=== PATIENT | female | born 1960 | race Caucasian/White ===

== ENCOUNTER 2016-12-19 08:42 | Outpatient (CLI) | payer OTHER ==
[~2016-12-19] VITALS: Ht 160 cm; Wt 81.2 kg
[2016-12-19] VITALS (17 sets, daily range): BP systolic 86–106; BP diastolic 50–66; PULSE 65–97; RESP 18–55; TEMP 98.1; O2SAT 97–100; Ht 160 cm; Wt 81.2 kg
[~2016-12-19 08:42] MED LIST: ALBU8.5H INH; CEFP200T14 PO; FURO-154 PO; HYDR-3841 PO; LACT10SO PO; LEVO50TA11 PO
--- NOTE | 2016-12-19 08:45 | NUR ---
ARRIVAL AMBULATORY TO ROOM 118 WITH SPOUSE. PATIENT ALERT AND ORIENTED X3. O2 RA. PATIENT DOES REPORT SHORTNESS OF BREATH BUT REPORTS THAT IS NORMAL FOR HER. DENIES CHEST PAIN. SPOUSE AT BEDSIDE. BARBARA HAMILTON NOTIFIED OF PATIENTS ARRIVAL. BED IN LOWEST POSITION, CALL LIGHT WITHIN REACH, SIDE RAILS UP X2.
[2016-12-19] MEDS ORDERED: ALBUMIN HUMAN 25% 200 ML IV ONE (09:47)
[2016-12-19] MEDS ORDERED: NORMAL SALINE 100 ML ONE (09:47)
--- NOTE | 2016-12-19 10:15 | NUR ---
OFF UNIT PATIENT OFF UNIT AT THIS TIME. PATIENT LEFT VIA WHEELCHAIR AND US STAFF. PATIENT VITALS ARE STABLE AND PATIENT IS ON ROOM AIR.
[2016-12-19] MEDS ORDERED: ALBUMIN HUMAN 25% 12.5gm 50ml IV ONE (11:00)
--- NOTE | 2016-12-19 11:01 | NUR ---
CM CM ATTEMPTED VISIT. PT IS AT PROCEDURE. NO FAMILY PRESENT IN THE ROOM. CM CONTACT INFORMATION IS LEFT AT THE BEDSIDE.
--- NOTE | 2016-12-19 11:56 | NUR ---
RETURN RETURN FROM PROCEDURE TO ROOM 118 VIA WHEELCHAIR. TRANSFERRED SELF FROM WHEELCHAIR TO BED. O2 RA. DENIES CHEST PAIN OR SHORTNESS OF AIR AT THIS TIME. BED IN LOWEST POSITION, SIDE RAILS UP X2, CALL LIGHT WITHIN REACH.
[2016-12-19] MEDS ORDERED: ALBUMIN HUMAN 25% 50 ML IV ONE (12:45)
--- NOTE | 2016-12-19 12:57 | DI ---
Indication:ITS.REASON Procedure:US GUIDE PARACENTESIS, SUBSEQ PARACENTESIS: The procedure including the benefits, risks, and alternatives were explained in detail to the patient. All of her questions were answered. She stated that they understood and wished to proceed. Informed consent was obtained. A preprocedural timeout was performed to confirm the correct patient and procedure. Using sterile technique, local xylocaine anesthesia, and sonographic guidance throughout, a paracentesis is done from a right lateral approach. 7000 ml of straw colored fluid was taken off without complication. Following this, the patient was taken back to her recovery room to finish her albumin infusion. Impression: Successful paracentesis performed with 7 L of fluid removed. Abdias Duncan RPA/CATARINA performed this under my personal supervision. .
[2016-12-19] MEDS ORDERED: NORMAL SALINE 500 ML IV ONE (14:45)
[2016-12-19] MEDS ORDERED: ONDANSETRON 4mg/2ml INJECTION IV PRN (14:45)
--- NOTE | 2016-12-19 16:10 | NUR ---
DISCHARGE PATIENT IS ALERT AND ORIENTED X3. PATIENT VITALS ARE STABLE AND PATIENT IS ON ROOM AIR. PATIENT DENIES CP, NAUSEA, AND SOA. PATIENT DISCHARGE INSTRUCTIONS INCLUDE: DI FOR PARACENTESIS, ACTIVITY, BATHING, CONTINUED MEDICATION, SIGNS AND SYMPTOMS OF INFECTION. PATIENT DRESSING HAD DRAINAGE CIRCLED. PATIENT STATED " MY PLATELET COUNT IS 30K THIS WEEK." PERSONAL BELONGINGS RETURNED, AND ID BAND REMOVED. IV DISCONTINUED. PATIENT AMBULATED WITH THIS NURSE TO FRONT ENTRANCE. PATIENT TRANSPORTED HOME FOR SELF CARE.
== END 2016-12-19 16:10 | disposition home or self-care (01) ==
LOC: IMA.BED 08:42 → SRG 08:42 → IMA.BED 16:10
PROVIDERS: ATTEND Radiology Diagnostic Radiology
DX: K74.60 Unspecified cirrhosis of liver (principal)
CPT/HCPCS: 49083; J2405; J7050; P9047

== ENCOUNTER 2016-12-26 08:34 | Outpatient (CLI) | payer OTHER ==
[2016-12-26] VITALS (16 sets, daily range): BP systolic 97–117; BP diastolic 56–69; PULSE 65–83; RESP 14–22; TEMP 97–97.4; O2SAT 97–100; Ht 160 cm; Wt 76.6 kg
[~2016-12-26] VITALS: Ht 160 cm; Wt 76.6 kg
[~2016-12-26 08:34] MED LIST changes: -CEFP200T14 PO
--- NOTE | 2016-12-26 08:43 | NUR ---
ADMIT PATIENT IS ADMITTED TO ROOM 133 AT THIS TIME. PATIENT AMBULATED TO ROOM WITH NO ASSISTANCE. PATIENT IS ALERT AND ORIENTED X3. WILL CONTINUE TO MONITOR.
[2016-12-26] MEDS ORDERED: ALBUMIN HUMAN 25% 200 ML IV ONE (10:13)
[2016-12-26] MEDS ORDERED: NORMAL SALINE 100 ML ONE (10:15)
--- NOTE | 2016-12-26 10:28 | NUR ---
To Radiology Pt transported to radiology at this time via wheelchair. VS stable on RA.
[2016-12-26] MEDS ORDERED: ALBUMIN HUMAN 25% 12.5gm 50ml IV ONE ×4 (11:00→15:01)
--- NOTE | 2016-12-26 12:03 | NUR ---
Back to room Pt transferred back to room at this time via wheelchair. VS stable on RA. Family present at time of transfer. Side rails up X2, call light w/in reach, bed alarm on.
[2016-12-26] MEDS: ALBUMIN HUMAN 25% 50 ML IV SCH ×3 (12:35→13:36)
--- NOTE | 2016-12-26 13:38 | DI ---
Indication:ITS.REASON Procedure:US GUIDE PARACENTESIS, SUBSEQ PARACENTESIS: The procedure including the benefits, risks, and alternatives were explained in detail to the patient. All of her questions were answered. She stated that they understood and wished to proceed. Informed consent was obtained. A preprocedural timeout was performed to confirm the correct patient and procedure. Using sterile technique, local xylocaine anesthesia, and sonographic guidance throughout, a paracentesis is done from a right lateral approach. 9000 ml of straw colored fluid was taken off without complication. Following this, the patient was taken to recovery room to finish her albumin infusion. Impression: Successful paracentesis performed with 9 L of fluid removed. Abdias Duncan RPA/CATARINA performed this under my personal supervision. .
--- NOTE | 2016-12-26 15:25 | NUR ---
Discharge Pt discharged home at this time. Pt ambulated self to front entrance, accompanied by nursing staff, to friend's vehicle. Discharge instructions reviewed and hard copies given. Pt verbalized understanding of Activity guidelines, diet, s/sx to report, medications and follow up appointment. Pt states "feeling the best she's felt in a long time." Denies SOA/difficulty breathing, CP, N/V.
== END 2016-12-26 15:25 | disposition home or self-care (01) ==
LOC: IMA.BED 08:34 → SRG 08:34 → IMA.BED 15:25
PROVIDERS: ATTEND Radiology Diagnostic Radiology
DX: K74.60 Unspecified cirrhosis of liver (principal); R18.8 Other ascites
CPT/HCPCS: 49083; J7050; P9047

== ENCOUNTER 2017-01-02 08:23 | Outpatient (CLI) | payer OTHER ==
[2017-01-02] VITALS (17 sets, daily range): BP systolic 93–119; BP diastolic 53–67; PULSE 70–100; RESP 16–55; TEMP 96.2–97.2; O2SAT 96–100; Ht 162.6 cm; Wt 74.6 kg
[~2017-01-02] VITALS: Ht 162.6 cm; Wt 74.6 kg
--- NOTE | 2017-01-02 08:29 | NUR ---
Admit Pt admitted at this time via ambulatory status in the company of an adult. VS stable on RA. Side rails up X2, call light w/in reach, bed alarm on.
[2017-01-02 08:51] LABS: INR 1.45 (0.76-1.04); PROTHROMBIN TIME 15.8 SEC (9.31-12.49)
[2017-01-02] MEDS ORDERED: SPIR100T3 PO (08:54)
[2017-01-02] MEDS ORDERED: NORMAL SALINE 100 ML ONE (09:42)
[2017-01-02] MEDS ORDERED: ALBUMIN HUMAN 25% 200 ML IV ONE (09:42)
--- NOTE | 2017-01-02 10:05 | NUR ---
To Radiology Pt off floor at this time via wheelchair. VS stable on RA. Consent signed prior to transfer, IV lock in place.
--- NOTE | 2017-01-02 10:11 | NUR ---
CM CM ATTEMPTED VISIT. PT IS AT PROCEDURE. NO FAMILY IS PRESENT. CM CONTACT INFORMATION IS LEFT AT THE BEDSIDE.
[2017-01-02] MEDS ORDERED: ALBUMIN HUMAN 25% 12.5gm 50ml IV ONE (11:00)
--- NOTE | 2017-01-02 11:55 | NUR ---
Back to room Pt transferred back to room at this time via wheelchair. VS stable on RA. Pt transferred self from wheelchair to bed. Post op vitals going at this time. Side rails up X2, call light with in reach, bed alarm on. Will continue to monitor.
[2017-01-02] MEDS ORDERED: ALBUMIN HUMAN 25% 50 ML IV SCH (12:00)
[2017-01-02] MEDS: ALBUMIN HUMAN 25% 50 ML IV SCH ×2 (12:38→13:43)
--- NOTE | 2017-01-02 12:57 | DI ---
Indication:ITS.REASON: K74.60 CIRRHOSIS Procedure:US GUIDE PARACENTESIS, INITIAL PARACENTESIS: The procedure including the benefits, risks, and alternatives were explained in detail to the patient. All of her questions were answered. She stated that they understood and wished to proceed. Informed consent was obtained. A preprocedural timeout was performed to confirm the correct patient and procedure. Using sterile technique, local xylocaine anesthesia, and sonographic guidance throughout, a paracentesis is done from a left lateral approach. 10.8 Lof a dark, straw-colored fluid was taken off without complication. Following this, the patient was taken back to her recovery room to finish her albumin infusion. Impression: Successful paracentesis performed with 10.8 L of fluid removed. Abdias Duncan RPA/CATARINA performed this under my personal supervision. .
--- NOTE | 2017-01-02 15:44 | NUR ---
Discharge Pt discharged at this time via wheelchair by Emilia Yarbrough, RN through the main entrance. IV catheter DC'd by Emilia Yarbrough RN. Pts wristband removed at time of discharge. Discharge packet and instructions were gone over and given to Pt. VS stable on RA. Pt reported a pressure feeling throughout her abdomen and chest. Pt stated it wasn't chest pain, no radiating or sharp pains of any sort. Pt stated "I believe it is just from the all the fluid shifts, I dont have a concern about it." Micaela Tong, RN was aware of Pts pressure feeling prior to transferring Pt to this RN. Pt stated Micaela and Abdias Duncan were aware back in radiology. This RN discussed options of pain medication, Pt refused.
== END 2017-01-02 15:44 | disposition home or self-care (01) ==
LOC: IMA.BED 08:23 → SRG 08:24 → IMA.BED 15:44
PROVIDERS: ATTEND Radiology Diagnostic Radiology
DX: K74.60 Unspecified cirrhosis of liver (principal)
CPT/HCPCS: 36415; 49083; 85049; 85610; J7050; P9047

== ENCOUNTER 2017-01-10 12:48 | Outpatient (CLI) | payer OTHER ==
--- NOTE | 2017-01-09 09:48 | NUR ---
PHONE CALL THIS RN NOTIFIED PATIENT TO SEE IF SHE WAS COMING TO HER SCHEDULED PROCEDURE TODAY. RN SPOKE WITH PATIENT'S . PATIENT'S STATES,''I THOUGHT WE WERE SUPPOSE TO COME IN AT 8:30AM.'' THIS RN INFORMED PATIENT'S PAULETTE WAS TO ARRIVE AT 8:30AM AND PROCEDURE WAS SCHEDULED FOR 10:30AM. PATIENT'S INFORMED THIS RN THEY WOULD ARRIVE SHORTLY FOR PROCEDURE. RN INFORMED FIONA IN RADIOLOGY OF THE ABOVE. FIONA INFORMED THIS RN PATIENT WOULD HAVE TO RESCHEDULE HER APPOINTMENT. FIONA ALSO INFORMED THIS RN SHE WOULD NOTIFIY PATIENT. RN VERBALIZED UNDERSTANDING.
[2017-01-10] VITALS (20 sets, daily range): BP systolic 92–116; BP diastolic 44–79; PULSE 60–100; RESP 16–24; TEMP 97.6–98.1; O2SAT 98–100; Ht 161.9 cm; Wt 81.7 kg
[~2017-01-10] VITALS: Ht 161.9 cm; Wt 81.7 kg
[~2017-01-10 12:48] MED LIST changes: +ALBUMIN HUMAN 25% 12.5gm 50ml IV ONE; +SPIR100T3 PO
--- NOTE | 2017-01-10 12:52 | NUR ---
ADMISSION Patient admitted to room 126 at 1252 for paracentesis.
--- NOTE | 2017-01-10 14:05 | NUR ---
TO PARACENTESIS Patient transferred per wheelchair to radiology for procedure, transported by Micaela Tong RN. Patient was admitted by Lois JIMENEZ and assessment completed by myself prior to transport.
[2017-01-10] MEDS ORDERED: NORMAL SALINE 100 ML ONE (14:10)
[2017-01-10] MEDS ORDERED: ALBUMIN HUMAN 25% 200 ML IV ONE (14:10)
--- NOTE | 2017-01-10 15:47 | NUR ---
RETURN Returns from paracentesis, is hungry and experiencing some abdominal cramping which she states is normal after each procedure, declines meds. Diet order taken from Dr Dugan and room service notified. Vitals monitored- BP 99/58, HR 68, sats 98% on room air. Albumin infuses at 50 mls/hr- Micaela JIMENEZ reports that this is the second of a vials of replacement albumin. Abdomen is soft and nondistended with a bandaid present to the LLQ, no drainage noted.
--- NOTE | 2017-01-10 16:03 | NUR ---
ALBUMIN Third vial of albumin 12.5 grams in 50 ml hung.
--- NOTE | 2017-01-10 16:03 | DI ---
Indication: ITS.REASON ascites PROCEDURE: US GUIDE PARACENTESIS, SUBSEQ: Encounter: Subsequent Comparison: January 02, 2017 Findings: PARACENTESIS: The procedure including the benefits, risks, and alternatives were explained in detail to the patient. All of her questions were answered. She stated that they understood and wished to proceed. Informed consent was obtained. A preprocedural timeout was performed to confirm the correct patient and procedure. Using sterile technique, local xylocaine anesthesia, and sonographic guidance throughout, a paracentesis is done from a left lateral approach. 9.5 Lof a dark, yellowish red-colored fluid was taken off without complication. Following this, the patient was taken back to her recovery room to finish her albumin infusion. Impression: Successful paracentesis performed with 9.5 L of fluid removed. .
[2017-01-10] MEDS: ALBUMIN HUMAN 25% 50 ML IV SCH ×2 (16:12→17:04)
[2017-01-10] MEDS ORDERED: NORMAL SALINE 500 ML IV SCH (17:15)
[2017-01-10] MEDS ORDERED: NAPROXEN 220 MG TABLET PO ONE (18:30)
--- NOTE | 2017-01-10 18:31 | NUR ---
HEADACHE See provider notification intervention for information related to posterior headache.
--- NOTE | 2017-01-10 19:15 | NUR ---
DC AT THIS TIME TO HOME VIA MAIN ENTRANCE IN VEHICLE DRIVEN BY DA AFTER DC EDU PROVIDED ON DIET, ACTIVITY, MEDICATIONS, F/U, RESTRICTIONS, REPORTABLE S/S, PT VERBALIZED UNDERSTANDING AND HAS NO QUESTIONS, DC PACKET AND PERSONAL BELONGINGS SENT WITH PT, NO SCRIPTS.
== END 2017-01-10 19:15 | disposition home or self-care (01) ==
LOC: SRG 12:48 → IMA.BED 12:48
PROVIDERS: ATTEND Radiology Diagnostic Radiology
DX: K74.60 Unspecified cirrhosis of liver (principal); R18.8 Other ascites
CPT/HCPCS: 49083; J7050; P9047

== ENCOUNTER 2017-01-15 00:23 | Emergency (ER) | payer OTHER ==
[~2017-01-15] VITALS: Ht 165.1 cm; Wt 79.6 kg
[~2017-01-15 00:23] MED LIST changes: -ALBUMIN HUMAN 25% 12.5gm 50ml IV ONE
--- OUTSIDE RECORDS SUMMARY | 2017-01-15 00:28 | XMS REPORT | Continuity of Care Document ---
[facility] Address Unknown Phone Unavailable Care Team Providers Care Hearing Officer Name Role Phone Primary Care Physician Unavailable Source Comments Some departments are not documenting in the electronic medical record. If you do not see the information that you expected, contact Release of Information in the Health Information Management department at [phone] for further assistance in locating additional records.[facility] Active Allergies and Adverse Reactions Not on File Current Medications Not on file Active Problems Not on file Most Recent Encounters Date Type Specialty Providers Description 10/31/2016 Telephone Transplant Surgery Peter Mccord, bakery associate Social History Tobacco Use Types Packs/Day Years Used Date Never Assessed Plan of Care Health Maintenance Due Date Last Done Comments Hepatitis C Screening 1961 Physical (Comprehensive) 1968 Exam Pertussis Vaccine 1972 Tetanus Vaccine 1978 Cervical Cancer Screening 1982 Breast Cancer Screening 2001 Colorectal Cancer 2011 Screening Influenza Vaccine 06/06/2017 Results from Last 3 Months Not on file
--- OUTSIDE RECORDS SUMMARY | 2017-01-15 00:28 | XMS REPORT | Continuity of Care Document ---
Author Author [facility] Organization [facility] Address Unknown Phone Unavailable Care Team Providers Care Hadoop Admin Name Role Phone ASHANTI GOEL Primary Care Physician [phone] Insurance Providers Guarantor Paulette Urena Address [address] [place] [id number] Email [email or web address] [facility] Policy Number [id number] Subscriber's Name Dale Urenasandie Sanchez Relationship 01 Spouse Group Number [id number] Advance Directives Directive Response Recorded Date/Time Ordered Resuscitation Status Full Code 01/02/17 8:11am Resuscitation Documents on File No 01/02/17 8:40am DPOA for Healthcare Only No 01/02/17 8:40am Living Will No 01/02/17 8:40am Problems Active Problems Medical Problem Onset Date Status Ascites Unknown Liver failure Unknown Past Problems Medical Problem Onset Date Cellulitis of abdominal wall Unknown Medications Current Home Medications Medication Dose Units Route Directions Days Qty Instructions Start Date Albuterol Sulfate (Proair Hfa 90 Mcg/Actuation) 8.5 Gm Hfa.aer.ad 1-2 Puff Inhalation Every 4 Hours as needed for Asthma 10/10/16 Furosemide (Lasix) 20 Mg Tablet 4 Tab Oral Daily 10/11/16 Hydroxyzine Pamoate 25 Mg Capsule 1 Cap Oral Three Times A Day as needed for Rash 90 Capsule 11/14/16 Lactulose 10 Gm/15 Ml Solution 45 Ml Oral Daily 1800 Milliliter 02/19 Levothyroxine Sodium 50 Mcg Tablet 50 Mcg Oral Before Breakfast 09/18/16 Spironolactone 100 Mg Tablet 2 Tab Oral Daily 01/02/17 Past Home Medications Medication Directions Ordered Status Albuterol Sulfate (Albuterol Sulfate Hfa) 8.5 Gm Hfa.aer.ad, 8.5 Gm Inhalation As Needed 09/28/08 Discontinued Furosemide 20 Mg Tablet, 1 Tab Oral Daily 09/18/16 Discontinued Furosemide 40 Mg Tablet, 40 Mg Oral Daily Prn 11/21/08 Discontinued Furosemide 40 Mg Tablet, 40 Mg Oral As Needed 09/28/08 Discontinued Gabapentin 600 Mg Tablet, 600 Mg Oral Three Times A Day 09/28/08 Discontinued Ipratropium/Albuterol Sulfate (Duoneb 2.5-0.5 Mg/3 Ml Soln) 3 Ml Ampul.neb, 3 Ml Inhalation As Needed 09/28/08 Discontinued Levothyroxine Sodium 125 Mcg Tablet, 125 Mcg Oral Daily 09/28/08 Discontinued Methadone Hcl 10 Mg Tablet, 80 Mg Oral Three Times A Day 09/28/08 Discontinued Ondansetron Hcl (Zofran) 8 Mg Tablet, 8 Mg Oral As Needed 09/28/08 Discontinued Sennosides/Docusate Sodium (Senna Plus Tablet) 1 Udtab Tablet, 3 Tab Oral 09/28/08 Discontinued Spironolactone 100 Mg Tablet, 300 Mg Oral Daily 10/10/16 Discontinued Spironolactone (Aldactone) 100 Mg Tablet, 100 Mg Oral Daily 09/18/16 Discontinued Tripo , 0.25 Ml Sublingual Daily 09/28/08 Discontinued Venlafaxine Hcl (Effexor Xr) 150 Mg Cap.sr.24h, 150 Mg Oral Daily 09/28/08 Discontinued Zo , 09/28/08 Discontinued Social History Social History Problem Response Recorded Date/Time Onset Date Status Reason for Hospitalization Ultrasound guided paracentesis 01/02/2017 3:12pm Not Applicable Not Applicable Hx Substance Use Y PER PAST ADMIT :Marijuana (for pain), speed 12/25/2016 4: 34pm Not Applicable Not Applicable Hx Alcohol Use No 12/25/2016 4:34pm Not Applicable Not Applicable Has the pt used tobacco in the last 12 months Yes 01/02/2017 8:42am Not Applicable Not Applicable Query Response Start Date Stop Date Smoking Status Former smoker Hospital Discharge Instructions Instructions: Care Instructions: I was in the hospital because (patient own words): "drain fluid off my belly" Discharge Diet: Pre admission diet Discharge Activity: -RESTART MEDS STOPPED FOR THIS PROCEDURE AT NEXT DAY. -MAY RETURN TO WORK THE NEXT DAY. MAY DRIVE STARTING NEXT DAY. -MAY SHOWER/ BATHE STARTING THE NEXT DAY. Follow Up Appointments: Follow up with usual schedule Pending Lab / Results: No Pending Lab Patient Instructions: see discharge instructions Expected Signs/Symptoms: see discharge instructions Notify Physician If: see discharge instructions During Business Hours:: Please call the physician's office After Business Hours:: Please call [phone] and have the extrusion press operator page the physician. Pain Management/Treatment: see discharge instructions Pain Scale Utilized to Educate Patient: 0-10 Pain Scale Wound/Incision Care: see discharge instructions Condition at time of discharge: Good Plan of Care Discharge Date 01/02/17 3:44pm Instructions/Education Provided Abdominal Paracentesis (DC) Prescriptions See Medication Section Functional Status Query Response Date Recorded Mobility Status Ambulatory January 02, 2017 8:44am Assistive Devices None January 02, 2017 8:44am Activity Limitations None January 02, 2017 8:44am Feeding Ability Independent January 02, 2017 8:44am Toileting Ability Assist January 02, 2017 8:44am Grooming Ability Assist January 02, 2017 8:44am Dressing Ability Assist January 02, 2017 8:44am Driving Ability Independent January 02, 2017 8:44am Housework Ability Independent January 02, 2017 8:44am Meal Preparation Ability Independent January 02, 2017 8:44am Stair Climbing Ability Independent January 02, 2017 8:44am Ability to complete ADL's impeded by No change January 02, 2017 8:44am Cognitive/Perceptual Impairments Impaired vision January 02, 2017 8:44am Visual Assistive Devices Glasses With patient January 02, 2017 8:44am Allergies, Adverse Reactions, Alerts Allergen Type Severity Reaction Status Last Updated Penicillin Allergy Intermediate TROUBLE BREATHING Active 01/01/17 Morphine Allergy Intermediate NAUSEA & VOMITING Active 01/01/17 Codeine Allergy Intermediate RASH Active 01/01/17 Spironolactone Allergy Mild RASH Active 01/01/17 Alcohol Allergy Severe RASH Active 01/01/17 Tetracycline Allergy Unknown UNKNOWN Active 01/01/17 Metoclopramide Allergy Unknown UNKNOWN Active 01/01/17 ETOH Allergy Unknown UNKNOWN Active 01/12/08 Immunizations Query Response on File Recorded Date/Time Hx Influenza Vaccination N REFUSED 01/02/17 8:42am Hx Pneumococcal Vaccination No 01/02/17 8:42am Hx Influenza Vaccination N REFUSED 01/02/17 8:42am Influenza Vaccine Hx NO HISTORY 12/13/16 7:25pm Vital Signs Acute Vital Signs Vital Response Date/Time Temperature (Fahrenheit) 97.2 deg F (96.8 - 99.1) 01/02/2017 12:52pm Temperature (Calculated Celsius) 36.04118 degrees C (36.0 - 37.3) 01/02/2017 12:52pm Temperature Source Temporal 01/02/2017 12:52pm Pulse Rate (adult) 77 bpm (60 - 100) 01/02/2017 2:48pm Respiratory Rate 16 breaths/min (10 - 20) 01/02/2017 1:51pm O2 Sat by Pulse Oximetry 99 % (90 - 100) 01/02/2017 2:48pm Oxygen Delivery Method Room Air 01/02/2017 2:48pm Oxygen Delivery Method Room Air 01/02/2017 8:38am Oxygen Flow Rate 1.50 L/min 11/21/2016 1:15pm Blood Pressure 99/58 mm Hg 01/02/2017 2:48pm Blood Pressure Source Automatic Cuff 01/02/2017 2:48pm Height (Feet) 5 feet 01/02/2017 8:40am Height (Inches) 4.00 inches 01/02/2017 8:40am Weight (Kilograms) 74.600 kg 01/02/2017 1:24pm Body Mass Index (BMI) 30.8 01/02/2017 8:40am Results Laboratory Results Test Name Result Units Flags Reference Collection Date/Time Result Date/ Time Comments White Blood Count 1.4 T/MM3 *L 4.5-11.0 12/13/2016 7:39pm 12/13/2016 7: 51pm Red Blood Count 4.22 M/MM3 4.00-5.20 12/13/2016 7:39pm 12/13/2016 7: 50pm Hemoglobin 11.2 GM/DL L 12-16 12/13/2016 7:39pm 12/13/2016 7:50pm Hematocrit 34.5 % L 36-46 12/13/2016 7:39pm 12/13/2016 7:50pm Mean Corpuscular Volume 81.8 UM3 80-100 12/13/2016 7:39pm 12/13/2016 7: 50pm Mean Corpuscular Hemoglobin 26.5 UUG 26-34 12/13/2016 7:39pm 2016 7:50pm Mean Corpuscular Hemoglobin Concent 32.5 GM/DL 31-37 12/13/2016 7:39pm 12/13/2016 7:50pm RDW Standard Deviation 52.5 FL H 36.9-50.2 12/13/2016 7:39pm 12/13/2016 7:50pm Neutrophils % (Manual) 59.0 % 33-66 12/13/2016 7:39pm 12/13/2016 8: 48pm Band Neutrophils % 16.0 % D H 0-6 12/13/2016 7:39pm 12/13/2016 8:48pm Lymphocytes % (Manual) 19.0 % L 23-45 12/13/2016 7:39pm 12/13/2016 8: 48pm Monocytes % (Manual) 2.0 % 0-9.0 12/13/2016 7:39pm 12/13/2016 8:48pm Eosinophils % (Manual) 2.0 % 0-4 12/13/2016 7:39pm 12/13/2016 8:48pm Metamyelocytes % 1.0 % H 0-0 12/13/2016 7:39pm 12/13/2016 8:48pm Myelocytes % 1.0 % H 0-0 12/13/2016 7:39pm 12/13/2016 8:48pm Band Neutrophils # 0.2 T/MM3 12/13/2016 7:39pm 12/13/2016 8:48pm Absolute Neutrophils (Manual) 0.8 T/MM3 L 1.8-7.7 12/13/2016 7:39pm 07/2017 8:48pm Lymphocytes # (Manual) 0.3 T/MM3 L 1-4.8 12/13/2016 7:39pm 12/13/2016 8: 48pm Monocytes # (Manual) 0.0 T/MM3 0-0.8 12/13/2016 7:39pm 12/13/2016 8: 48pm Eosinophils # (Manual) 0.0 T/MM3 0-0.5 12/13/2016 7:39pm 12/13/2016 8: 48pm Metamyelocytes # 0.0 T/MM3 12/13/2016 7:39pm 12/13/2016 8:48pm Myelocytes # 0.0 T/MM3 12/13/2016 7:39pm 12/13/2016 8:48pm Red Cell Morphology Comment ABNORMAL 12/13/2016 7:39pm 12/13/2016 8 :48pm Anisocytosis 1+ 12/13/2016 7:39pm 12/13/2016 8:48pm Poikilocytosis 1+ 12/13/2016 7:39pm 12/13/2016 8:48pm Icterus Index < 2 0-7 12/13/2016 7:39pm 12/13/2016 7:56pm Chemistry Specimen Hemolysis < 15 0-25 12/13/2016 7:39pm 12/13/2016 7 :56pm 0-25: Specimen Exhibited No Hemolysis. Turbidity < 20 0-20 12/13/2016 7:39pm 12/13/2016 7:56pm Sodium Level 140 MEQ/L 134-144 12/13/2016 7:39pm 12/13/2016 7:56pm Potassium Level 4.3 MEQ/L 3.6-5 12/13/2016 7:39pm 12/13/2016 7:56pm Chloride Level 110 MEQ/L H 98-107 12/13/2016 7:39pm 12/13/2016 7:56pm Carbon Dioxide Level 21 MEQ/L L 22-30 12/13/2016 7:39pm 12/13/2016 7: 56pm Anion Gap 9 MEQ/L 5-15 12/13/2016 7:39pm 12/13/2016 7:56pm Blood Urea Nitrogen 17.0 MG/DL 7-17 12/13/2016 7:39pm 12/13/2016 7: 56pm Creatinine 0.8 MG/DL 0.7-1.2 12/13/2016 7:39pm 12/13/2016 7:56pm BUN/Creatinine Ratio 21 RATIO 6-26 12/13/2016 7:39pm 12/13/2016 7:56pm Glomerular Filtration Rate Calc 74 12/13/2016 7:39pm 12/13/2016 7: 56pm Glucose Level 83 MG/DL 65-110 12/13/2016 7:39pm 12/13/2016 7:56pm Calculated Osmolality 270 MOSM/KG 261-280 12/13/2016 7:39pm 12/13/2016 7:56pm Calcium Level 8.6 MG/DL 8.4-10.2 12/13/2016 7:39pm 12/13/2016 7:56pm Lipase 105 U/L 23-300 12/13/2016 7:39pm 12/13/2016 7:56pm Plasma Lactate 0.8 MMOL/L 0.6-2.2 12/13/2016 8:09pm 12/13/2016 8:29pm Procalcitonin < 0.05 NG/ML 12/13/2016 8:09pm 12/13/2016 8:45pm PCT < /=0.5 ng/mL - sepsis not likely; PCT >0.5 and </=2 ng/mL - sepsis possible; PCT >2 ng/mL - sepsis likely; PCT >/=10 ng/mL - systemic inflammatory response - sepsis or septic shock highly indicated. Urine Collection Type CLEANCATCH-MIDSTREAM 12/13/2016 7:39pm 2016 7:52pm Urine Color YELLOW YELLOW 12/13/2016 7:39pm 12/13/2016 7:52pm Urine Turbidity CLEAR CLEAR 12/13/2016 7:39pm 12/13/2016 7:52pm Urine Specific [place] 1.020 1.015-1.025 12/13/2016 7:39pm 2016 7:52pm Urine pH 6.0 5.0-8.0 12/13/2016 7:39pm 12/13/2016 7:52pm Urine Leukocyte Esterase NEGATIVE NEGATIVE 12/13/2016 7:39pm 2016 7:52pm Urine Nitrite NEGATIVE NEGATIVE 12/13/2016 7:39pm 12/13/2016 7:52pm Urine Protein NEGATIVE NEGATIVE 12/13/2016 7:39pm 12/13/2016 7:52pm Urine Glucose (UA) NEGATIVE NEGATIVE 12/13/2016 7:39pm 12/13/2016 7: 52pm Urine Ketones 1+ A NEGATIVE 12/13/2016 7:39pm 12/13/2016 7:52pm Urine Urobilinogen 1.0 EU/DL NORMAL 12/13/2016 7:39pm 12/13/2016 7: 52pm Urine Bilirubin 1+ A NEGATIVE 12/13/2016 7:39pm 12/13/2016 7:52pm Urine Blood 2+ A NEGATIVE 12/13/2016 7:39pm 12/13/2016 7:52pm Urine WBC 1-3 /HPF 0-5 12/13/2016 7:39pm 12/13/2016 8:04pm Urine RBC 0-1 /HPF 0-3 12/13/2016 7:39pm 12/13/2016 8:04pm Urine Squamous Epithelial Cells 0-5 12/13/2016 7:39pm 12/13/2016 8: 04pm Urine Bacteria TRACE H NEGATIVE 12/13/2016 7:39pm 12/13/2016 8:04pm Urine Culture Indicated CULT NOT INDICATED 12/13/2016 7:39pm 2016 8:04pm Platelet Count 33 T/MM3 L 130-400 01/02/2017 8:39am 01/02/2017 8:52am Prothromb Time International Ratio 1.45 H 0.76-1.04 01/02/2017 8:39am 01/02/2017 8:51am THERAPUTIC RANGE=2.00-3.00 FOR ANTI-THROMBOSIS THERAPUTIC RANGE=2.50-3.50 FOR IMPLANTED VALVE Microbiology Results Procedure Source Organism/Result Collection Date/Time Result Date/Time Result Status Urine Culture Urine, Clean Catch-Midstream MIXED LEOPOLDO 12/13/2016 7:39pm 12/15/2016 7:45am Final Blood Culture Peripheral/Iv Start NO GROWTH AFTER 5 DAYS 12/13/2016 8:10pm 12/18/2016 8:16pm Final Name: PAULETTE URENA Unit #: [id number] : 1960 Sex: F Admit Date: Loc / Svc: SRG Discharge Date: DIAGNOSTIC IMAGING REPORT Report [facility] [id number] Indication:ITS.REASON: K74.60 CIRRHOSIS Procedure:US GUIDE PARACENTESIS, INITIAL PARACENTESIS: The procedure including the benefits, risks, and alternatives were explained in detail to the patient. All of her questions were answered. She stated that they understood and wished to proceed. Informed consent was obtained. A preprocedural timeout was performed to confirm the correct patient and procedure. Using sterile technique, local xylocaine anesthesia, and sonographic guidance throughout, a paracentesis is done from a left lateral approach. 10.8 Lof a dark, straw-colored fluid was taken off without complication. Following this, the patient was taken back to her recovery room to finish her albumin infusion. Impression: Successful paracentesis performed with 10.8 L of fluid removed. Angel Duncan RPA/CATARINA performed this under my personal supervision. . Procedures Procedure Status Date Provider(s) Routine venipuncture Completed 10/11/16 Abd paracentesis w/imaging Completed 10/11/16 Abd paracentesis w/imaging Completed 10/11/16 Abd paracentesis w/imaging Completed 10/11/16 Abd paracentesis w/imaging Completed 10/11/16 Abd paracentesis w/imaging Completed 10/11/16 Abd paracentesis w/imaging Completed 10/11/16 Abd paracentesis w/imaging Completed 10/11/16 Abd paracentesis w/imaging Completed 10/11/16 Echo guide for biopsy Completed 10/11/16 Automated platelet count Completed 10/11/16 Prothrombin time Completed 10/11/16778543"INFUSION, ALBUMIN (HUMAN), 25%, 50 ML" Completed 10/11/16 [id number]"INFUSION, ALBUMIN (HUMAN), 25%, 50 ML" Completed 10/11/16680716"INFUSION, ALBUMIN (HUMAN), 25%, 50 ML" Completed 10/11/16 Routine venipuncture Completed 11/01/16 Abd paracentesis w/imaging Completed 11/01/16 ANGEL DUGAN MD Automated platelet count Completed 11/01/16 Prothrombin time Completed 11/01/16912775"INFUSION, ALBUMIN (HUMAN), 25%, 50 ML" Completed 11/01/16 Abd paracentesis w/imaging Completed 11/14/16 ANGEL DUGAN MD [id number]"INFUSION, NORMAL SALINE SOLUTION , 250 CC" Completed 11/14/16917998"INFUSION, ALBUMIN (HUMAN), 25%, 50 ML" Completed 11/14/16 Abd paracentesis w/imaging Completed 11/21/16 ANGEL DUGAN MD Behav chng smoking 3-10 min Completed 11/21/16"INFUSION, ALBUMIN (HUMAN), 25%, 50 ML" Completed 11/21/16 Routine venipuncture Completed 11/28/16 Abd paracentesis w/imaging Completed 11/28/16 ANGEL DUGAN MD Automated platelet count Completed 11/28/16 Prothrombin time Completed 11/28/16"INFUSION, NORMAL SALINE SOLUTION , 250 CC" Completed 11/28/16"INFUSION, ALBUMIN (HUMAN), 25%, 50 ML" Completed 11/28/16"INFUSION, ALBUMIN (HUMAN), 25%, 50 ML" Completed 11/28/16 Abd paracentesis w/imaging Completed 12/06/16 ANGEL DUGAN MD [id number]"INFUSION, NORMAL SALINE SOLUTION , 250 CC" Completed 12/06/16"INFUSION, ALBUMIN (HUMAN), 25%, 50 ML" Completed 12/06/16 Abd paracentesis w/imaging Completed 12/12/16 ANGEL DUGAN MD Behav chng smoking 3-10 min Completed 12/12/16"INFUSION, NORMAL SALINE SOLUTION , 250 CC" Completed 12/12/16"INFUSION, ALBUMIN (HUMAN), 25%, 50 ML" Completed 12/12/16"INFUSION, ALBUMIN (HUMAN), 25%, 50 ML" Completed 12/12/16"INFUSION, ALBUMIN (HUMAN), 25%, 50 ML" Completed 12/12/16 Routine venipuncture Completed 12/13/16 Ct abd & pelv w/contrast Completed 12/13/16 Echo exam of abdomen Completed 12/13/16 Metabolic panel total ca Completed 12/13/16 Urinalysis auto w/scope Completed 12/13/16 Urine test Completed 12/13/16 Assay of lactic acid Completed 12/13/16 Assay of lipase Completed 12/13/16 Procalcitonin (pct) Completed 12/13/16 Complete cbc w/auto diff wbc Completed 12/13/16 Blood culture for bacteria Completed 12/13/16 Blood culture for bacteria Completed 12/13/16 Urine culture/colony count Completed 12/13/16 Ther/proph/diag iv inf init Completed 12/13/16 Tx/pro/dx inj new drug addon Completed 12/13/16 Tx/pro/dx inj new drug addon Completed 12/13/16 Emergency dept visit Completed 12/13/16"INJECTION, CEFEPIME HYDROCHLORIDE, 500 MG" Completed 12/13/16"INJECTION, ONDANSETRON HYDROCHLORIDE, PER 1 MG" Completed 12/13/16"INFUSION, NORMAL SALINE SOLUTION , 250 CC" Completed 12/13/16"INFUSION, NORMAL SALINE SOLUTION , 250 CC" Completed 12/13/16"LOW OSMOLAR CONTRAST MATERIAL, 300-399 MG/ML IODINE C Completed Abd paracentesis w/imaging Completed 12/19/16 ABEBA COTTON MD "INJECTION, ONDANSETRON HYDROCHLORIDE, PER 1 MG" Completed 12/19/16"INFUSION, NORMAL SALINE SOLUTION , 250 CC" Completed 12/19/16"INFUSION, ALBUMIN (HUMAN), 25%, 50 ML" Completed 12/19/16 Encounters Encounter Location Arrival/Admit Date Discharge/Depart Date Attending Provider [facility] 01/02/17 8:23am 01/02/17 3:44pm ANGEL DUGAN MD [facility] 12/26/16 8:34am 12/26/16 3:25pm ANGEL DUGAN MD [facility] 12/19/16 8:42am 12/19/16 4:10pm ABEBA COTTON MD Departed Emergency Room [facility] 12/13/16 7:04pm 12/13/16 10: 42pm MAYMARCO DO [facility] 12/12/16 8:05am 12/12/16 3:57pm ANGEL DUGAN MD [facility] 12/06/16 8:18am 12/06/16 1:50pm ANGEL DUGAN MD [facility] 11/28/16 8:16am 11/28/16 5:30pm ANGEL DUGAN MD [facility] 11/21/16 8:54am 11/21/16 4:40pm ANGEL DUGAN MD [facility] 11/14/16 8:48am 11/14/16 2:44pm ANGEL UDGAN MD [facility] 11/01/16 11:04am 11/01/16 5:08pm ANGEL DUGAN MD [facility] 10/11/16 9:03am 10/11/16 3:25pm ANGEL DUGAN MD
--- OUTSIDE RECORDS SUMMARY | 2017-01-15 00:28 | XMS REPORT ---
Author Author Dionicio Dumont [facility] Address [address] [place] [address] Care Team Providers Care High Speed Warper Tender Name Role Phone Dionicio Dumont Unavailable [phone] PROBLEMS Type Condition ICD9-CM Code OEL04-IT Code Onset Dates Condition Status SNOMED Code Problem Cirrhosis of liver with ascites, unspecified hepatic cirrhosis type K74.60 Active 64759041 Problem Hepatic encephalopathy K72.90 Active 25319234 Problem Diarrhea, unspecified type R19.7 Active 19616583 Problem Encounter for screening colonoscopy Z12.11 Active 451839917 Problem Immunization deficiency Z28.3 Active 461826704 Problem Other ascites R18.8 Active 927488393 Problem Pharyngoesophageal dysphagia R13.14 Active 73676241 Problem Other cirrhosis of liver K74.69 Active 41243568 Problem Chronic hepatitis C without hepatic coma B18.2 Active 615618719 Problem Pancytopenia D61.818 Active 014499867 Problem Hepatitis C, chronic B18.2 Active 527936981 Problem Cirrhosis of liver K74.60 Active 05243797 Problem Hypothyroidism E03.9 Active 99424154 Problem Chronic obstructive pulmonary disease, unspecified J44.9 Active 44514841 ALLERGIES Unknown Allergies SOCIAL HISTORY No smoking Hx information available PLAN OF CARE VITAL SIGNS MEDICATIONS Unknown Medications RESULTS No Results PROCEDURES No Known procedures IMMUNIZATIONS No Known Immunizations
--- OUTSIDE RECORDS SUMMARY | 2017-01-15 00:29 | XMS REPORT | Continuity of Care Document ---
Author Author [facility] Organization [facility] Address Unknown Phone Unavailable Care Team Providers Care Workforce Manager Name Role Phone ASHANTI GOEL Primary Care Physician [phone] Insurance Providers Guarantor Paulette Urena Address [address] [place] [address] Email [email or web address] Payer [facility] Healthcare Policy Number [id number] Subscriber's Name Dale Urenasandie Sanchez Relationship 01 Spouse Group Number [id number] Advance Directives Directive Response Recorded Date/Time Ordered Resuscitation Status Full Code 01/09/17 8:14am Resuscitation Documents on File No 01/10/17 1:10pm DPOA for Healthcare Only No 01/10/17 1:10pm Living Will No 01/10/17 1:10pm Problems Active Problems Medical Problem Onset Date [...] Date/Time Onset Date Status Reason for Hospitalization Paracentesis 01/10/2017 6:46pm Not Applicable Not Applicable Hx Substance Use Y PER PAST ADMIT :Marijuana (for pain), speed 01/10/2017 1: 10pm Not Applicable Not Applicable Hx Alcohol Use No 01/10/2017 1:10pm Not Applicable Not Applicable Has the pt used tobacco in the last 12 months Yes 01/10/2017 1:14pm Not Applicable Not Applicable Query Response Start Date Stop Date Smoking Status Former smoker Hospital Discharge Instructions Instructions: Care Instructions: Discharge Activity: -RESTART MEDICINES STOPPED FOR THIS PROCEDURE AT NEXT DAY. -MAY RETURN TO WORK THE NEXT DAY. MAY DRIVE STARTING NEXT DAY. -MAY SHOWER/BATHE STARTING THE NEXT DAY. Pending Lab / Results: No Pending Lab Pain Scale Utilized to Educate Patient: 0-10 Pain Scale Condition at time of discharge: Good Plan of Care Discharge Date 01/10/17 7:15pm Instructions/Education Provided Abdominal Paracentesis (DC) Prescriptions See Medication Section Functional Status Query Response Date Recorded Mobility Status Ambulatory January 10, 2017 1:19pm Assistive Devices None January 10, 2017 1:19pm Activity Limitations Shortness of breath January 10, 2017 1:19pm Feeding Ability Independent January 10, 2017 1:19pm Toileting Ability Independent January 10, 2017 1:19pm Grooming Ability Independent January 10, 2017 1:19pm Dressing Ability Independent January 10, 2017 1:19pm Driving Ability Independent January 10, 2017 1:19pm Housework Ability Independent January 10, 2017 1:19pm Meal Preparation Ability Independent January 10, 2017 1:19pm Stair Climbing Ability Independent January 10, 2017 1:19pm Ability to complete ADL's impeded by No change January 10, 2017 1:19pm Cognitive/Perceptual Impairments Impaired vision January 10, 2017 1:19pm Visual Assistive Devices Glasses With patient January 10, 2017 1:19pm Preferred Method of Learning Reading Listening Hands on January 10, 2017 1:19pm Allergies, Adverse Reactions, Alerts Allergen Type Severity Reaction Status Last Updated Penicillin Allergy Intermediate TROUBLE BREATHING Active 01/10/17 Morphine Allergy Intermediate NAUSEA & VOMITING Active 01/10/17 Codeine Allergy Intermediate RASH Active 01/10/17 Spironolactone Allergy Mild RASH Active 01/10/17 Alcohol Allergy Severe RASH Active 01/10/17 Tetracycline Allergy Unknown UNKNOWN Active 01/10/17 Metoclopramide Allergy Unknown UNKNOWN Active 01/10/17 ETOH Allergy Unknown UNKNOWN Active 01/12/08 Immunizations Query Response on File Recorded Date/Time Hx Influenza Vaccination N REFUSED 01/10/17 1:14pm Hx Pneumococcal Vaccination No 01/10/17 1:14pm Hx Influenza Vaccination N REFUSED 01/10/17 1:14pm Influenza Vaccine Hx NO HISTORY 12/13/16 7:25pm Vital Signs Acute Vital Signs Vital Response Date/Time Temperature (Fahrenheit) 98.1 deg F (96.8 - 99.1) 01/10/2017 6:00pm Temperature (Calculated Celsius) 36.58129 degrees C (36.0 - 37.3) 01/10/2017 6:00pm Temperature Source Temporal 01/10/2017 6:00pm Pulse Rate (adult) 71 bpm (60 - 100) 01/10/2017 6:32pm Respiratory Rate 20 breaths/min (10 - 20) 01/10/2017 6:32pm O2 Sat by Pulse Oximetry 100 % (90 - 100) 01/10/2017 6:32pm Oxygen Delivery Method Room Air 01/10/2017 6:32pm Oxygen Delivery Method Room Air 01/10/2017 1:17pm Oxygen Flow Rate 1.50 L/min 11/21/2016 1:15pm Blood Pressure 96/55 mm Hg 01/10/2017 6:32pm Blood Pressure Source Automatic Cuff 01/10/2017 6:32pm Height (Feet) 5 feet 01/10/2017 1:09pm Height (Inches) 3.75 inches 01/10/2017 1:09pm Weight (Kilograms) 81.700 kg 01/10/2017 1:09pm Body Mass Index (BMI) 31.2 01/10/2017 1:09pm Results Laboratory Results Test Name Result Units [...] CLEAR 12/13/2016 7:39pm 12/13/2016 7:52pm Urine Specific [place] 1.020 1.015-1.025 12/13/2016 7:39pm 2016 7:52pm Urine [...] 8:16pm Final Name: PAULETTE URENA Unit #: [id number] : 1960 Sex: F Admit Date: Loc / Svc: SRG Discharge Date: DIAGNOSTIC IMAGING REPORT Report #: [id number] [place], [place] Indication: ITS.REASON ascites PROCEDURE: US GUIDE PARACENTESIS, SUBSEQ: Encounter: Subsequent Comparison: January 02, 2017 Findings: PARACENTESIS: The procedure including the benefits, risks, [...] is done from a left lateral approach. 9.5 Lof a dark, yellowish red-colored fluid was taken off without complication. Following this, the patient was taken back to her recovery room to finish her albumin infusion. Impression: Successful paracentesis performed with 9.5 L of fluid removed. . Procedures Procedure Status Date Provider(s) Routine venipuncture Completed 11/01/16 Abd paracentesis w/imaging Completed 11/01/16 ANGEL DUGAN MD Automated platelet count Completed 11/01/16 Prothrombin time Completed 11/01/16"INFUSION, ALBUMIN (HUMAN), 25%, 50 ML" Completed 11/01/16 Abd paracentesis w/imaging Completed 11/14/16 ANGEL DUGAN MD [id number]"INFUSION, NORMAL SALINE SOLUTION , 250 CC" Completed 11/14/16"INFUSION, ALBUMIN (HUMAN), 25%, 50 ML" Completed 11/14/16 Abd paracentesis w/imaging Completed 11/21/16 ANGEL DUGAN MD Behav chng smoking 3-10 min Completed 11/21/16278737"INFUSION, ALBUMIN (HUMAN), 25%, 50 ML" Completed 11/21/16 Routine venipuncture Completed 11/28/16 Abd paracentesis w/imaging Completed 11/28/16 ANGEL DUGAN MD Automated platelet count Completed 11/28/16 Prothrombin time Completed 11/28/16704034"INFUSION, NORMAL SALINE SOLUTION , 250 CC" Completed 11/28/16338592"INFUSION, ALBUMIN (HUMAN), 25%, 50 ML" Completed 11/28/16078268"INFUSION, ALBUMIN (HUMAN), 25%, 50 ML" Completed 11/28/16 Abd paracentesis w/imaging Completed 12/06/16 ANGEL DUGAN MD [id number]"INFUSION, NORMAL SALINE SOLUTION , 250 CC" Completed 12/06/16321187"INFUSION, ALBUMIN (HUMAN), 25%, 50 ML" Completed 12/06/16 Abd paracentesis w/imaging Completed 12/12/16 ANGEL DUGAN MD Behav chng smoking 3-10 min Completed 12/12/16681334"INFUSION, NORMAL SALINE SOLUTION , 250 CC" Completed 12/12/16105262"INFUSION, ALBUMIN (HUMAN), 25%, 50 ML" Completed 12/12/16304594"INFUSION, ALBUMIN (HUMAN), 25%, 50 ML" Completed 12/12/16806198"INFUSION, ALBUMIN (HUMAN), 25%, 50 ML" Completed 12/12/16 [...] paracentesis w/imaging Completed 12/19/16 ABEBA COTTON MD [id number]"INJECTION, ONDANSETRON HYDROCHLORIDE, PER 1 MG" Completed 12/19/16"INFUSION, NORMAL SALINE SOLUTION , 250 CC" Completed 12/19/16174244"INFUSION, ALBUMIN (HUMAN), 25%, 50 ML" Completed 12/19/16 Abd paracentesis w/imaging Completed 12/26/16 ANGEL DUGAN MD [id number]"INFUSION, NORMAL SALINE SOLUTION , 250 CC" Completed 12/26/16303250"INFUSION, ALBUMIN (HUMAN), 25%, 50 ML" Completed 12/26/16813938"INFUSION, ALBUMIN (HUMAN), 25%, 50 ML" Completed 12/26/16"INFUSION, ALBUMIN (HUMAN), 25%, 50 ML" Completed 12/26/16 Routine venipuncture Completed 01/02/17 Abd paracentesis w/imaging Completed 01/02/17 ANGEL DUGAN MD Automated platelet count Completed 01/02/17 Prothrombin time Completed 01/02/17"INFUSION, NORMAL SALINE SOLUTION , 250 CC" Completed 01/02/17"INFUSION, ALBUMIN (HUMAN), 25%, 50 ML" Completed 01/02/17"INFUSION, ALBUMIN (HUMAN), 25%, 50 ML" Completed 01/02/17"INFUSION, ALBUMIN (HUMAN), 25%, 50 ML" Completed 01/02/17 Encounters Encounter Location Arrival/Admit Date Discharge/Depart Date Attending Provider [facility] 01/10/17 12:48pm 01/10/17 7:15pm ANGEL DUGAN MD [facility] 01/02/17 8:23am 01/02/17 3:44pm ANGEL DUGAN MD [facility] 12/26/16 8:34am 12/26/16 3:25[facility] 12/19/16 4:10pm ABEBA COTTON MD Departed Emergency Room [facility] 12/13/16 7:04pm 12/13/16 10: 42pm FEBRUARYMARCO DO [facility] 12/12/16 8:05am 12/12/16 3:57pm ANGEL DUGAN MD [facility] 12/06/16 8:18am 12/06/16 1:50pm [facility] 11/28/16 5:30pm ANGEL DUGAN MD [facility] 11/21/16 8:54am 11/21/16 4:40pm ANGEL DUGAN MD [facility] 11/14/16 8:48am 11/14/16 2:44pm ANGEL DUGAN MD [facility] 11/01/16 11:04am 11/01/16 5:08pm ANGEL DUGAN MD
--- OUTSIDE RECORDS SUMMARY | 2017-01-15 00:29 | XMS REPORT ---
Author Author Dionicio Dumont [facility] Address [address] [place] [address] Care Team Providers Care Grain Grader Name Role Phone Dionicio Dumont Unavailable [phone] PROBLEMS Type Condition ICD9-CM Code LDA13-MW Code Onset Dates Condition Status SNOMED Code Problem Hepatitis C, chronic B18.2 Active 697397674 Problem Chronic obstructive pulmonary disease, unspecified J44.9 Active 05790297 Problem Cirrhosis of liver K74.60 Active 58700633 Assessment Cirrhosis of liver with ascites, unspecified hepatic cirrhosis type K74.60 Oct, Active 15690123 Problem Hypothyroidism E03.9 Active 73044256 Problem Pancytopenia D61.818 Active 915006806 Problem Other cirrhosis of liver K74.69 Active 34494733 Problem Chronic hepatitis C without hepatic coma B18.2 Active 810966510 Problem Hepatic encephalopathy K72.90 Active 72393609 Problem Diarrhea, unspecified type R19.7 Active 10577661 Problem Other ascites R18.8 Active 042480086 Problem Pharyngoesophageal dysphagia R13.14 Active 32458769 ALLERGIES Unknown Allergies SOCIAL HISTORY No smoking Hx information available PLAN OF CARE Activity Details Pending Test Paracentesis, large volume ,Reason: VITAL SIGNS MEDICATIONS Medication Instructions Dosage Frequency Start Date End Date Duration Status Aleve 220 MG Orally daily 24h Active Furosemide 40 MG Orally once a day 1 tablet(dose increase) 24h Active Milk Thistle Active Suprep Bowel Prep - Orally as directed as directed Aug, 1 day (s) Active Levothyroxine Sodium 50 MCG Orally Once a day 1 tablet on an empty stomach in the morning 24h Jul, Active Spironolactone 100 MG Orally Once a day 2 tablets dose increase 24h Jul Active RESULTS Name Result Date Reference Range Paracentesis, large volume 2016-10-11 PROCEDURES No Known procedures IMMUNIZATIONS No Known Immunizations
--- OUTSIDE RECORDS SUMMARY | 2017-01-15 00:29 | XMS REPORT | Continuity of Care Document ---
Author Author [facility] Organization [facility] Address Unknown Phone Unavailable Care Team Providers Care Wheel Adjuster Name Role Phone ASHANTI GOEL Primary Care Physician [phone] Insurance Providers Guarantor Paulette Urena Address [address] [place] [address] Email [email or web address] Payer [facility] Healthcare Policy Number [id number] Subscriber's Name Dale Urenasandie Sanchez Relationship 01 Spouse Group Number [id number] Advance Directives Directive Response Recorded Date/Time Dr Ordered Resuscitation Status Full Code 12/26/16 8:13am Resuscitation Documents on File No 12/26/16 9:07am DPOA for Healthcare Only No 12/26/16 9:07am Living Will No 12/26/16 9:07am Problems Active Problems Medical Problem Onset Date [...] Tablet 50 Mcg Oral Before Breakfast 09/18/16 Past Home Medications Medication Directions Ordered Status [...] Status Reason for Hospitalization Ultrasound guided paracentesis 12/26/2016 3:07pm Not Applicable Not Applicable Chewing Tobacco Status No 12/25/2016 4:34pm Not Applicable Not Applicable Hx Substance Use Y PER PAST ADMIT :Marijuana (for pain), speed 12/25/2016 4: 34pm Not Applicable Not Applicable Hx Alcohol Use No 12/25/2016 4:34pm Not Applicable Not Applicable Has the pt used tobacco in the last 12 months Yes 12/26/2016 9:12am Not Applicable Not Applicable Query Response Start Date Stop Date Smoking Status Former smoker Hospital Discharge Instructions Instructions: Care Instructions: I was in the hospital because (patient own words): "Drain fluid from my tummy" Discharge Diet: As before Discharge Activity: Restart meds stopped for this procedure at next day. May return to work the next day. May start driving the next day. May shower/bathe starting the next day. Follow Up Appointments: As previously scheduled Pending Lab / Results: No Pending Lab Patient Instructions: Given Paracentesis education Expected Signs/Symptoms: see discharge instructions Notify Physician If: You have any questions or concerns During Business Hours:: Please call the physician's office during business hours After Business Hours:: Please call [phone] and have the acid polymerization operator page the physician. Pain Management/Treatment: see discharge instructions Pain Scale Utilized to Educate Patient: 0-10 Pain Scale Wound/Incision Care: see discharge instructions Condition at time of discharge: Good Plan of Care Discharge Date 12/26/16 3:25pm Instructions/Education Provided Abdominal Paracentesis (DC) Prescriptions See Medication Section Functional Status Query Response Date Recorded Mobility Status Ambulatory December 26, 2016 9:18am Assistive Devices None December 26, 2016 9:18am Activity Limitations None December 26, 2016 9:18am Feeding Ability Independent December 26, 2016 9:18am Toileting Ability Independent December 26, 2016 9:18am Grooming Ability Independent December 26, 2016 9:18am Dressing Ability Independent December 26, 2016 9:18am Driving Ability Independent December 26, 2016 9:18am Housework Ability Independent December 26, 2016 9:18am Meal Preparation Ability Independent December 26, 2016 9:18am Stair Climbing Ability Independent December 26, 2016 9:18am Ability to complete ADL's impeded by No change December 26, 2016 9:18am Cognitive/Perceptual Impairments Impaired vision December 26, 2016 9:18am Visual Assistive Devices Glasses December 26, 2016 9:18am Hearing Assistive Devices With patient December 26, 2016 9:18am Preferred Method of Learning Reading Demonstration December 26, 2016 9:18am Allergies, Adverse Reactions, Alerts Allergen Type Severity Reaction Status Last Updated Penicillin Allergy Intermediate TROUBLE BREATHING Active 12/19/16 Morphine Allergy Intermediate NAUSEA & VOMITING Active 12/19/16 Codeine Allergy Intermediate RASH Active 12/19/16 Spironolactone Allergy Mild RASH Active 12/19/16 Alcohol Allergy Severe RASH Active 12/19/16 Tetracycline Allergy Unknown UNKNOWN Active 12/19/16 Metoclopramide Allergy Unknown UNKNOWN Active 12/19/16 ETOH Allergy Unknown UNKNOWN Active 01/12/08 Immunizations Query Response on File Recorded Date/Time Hx Influenza Vaccination N REFUSED 12/26/16 9:12am Hx Pneumococcal Vaccination No 12/26/16 9:12am Hx Influenza Vaccination N REFUSED 12/26/16 9:12am Influenza Vaccine Hx NO HISTORY 12/13/16 7:25pm Vital Signs Acute Vital Signs Vital Response Date/Time Temperature (Fahrenheit) 97.0 deg F (96.8 - 99.1) 12/26/2016 12:05pm Temperature (Calculated Celsius) 36.91390 degrees C (36.0 - 37.3) 12/26/2016 12:05pm Temperature Source Oral 12/26/2016 12:05pm Pulse Rate (adult) 74 bpm (60 - 100) 12/26/2016 2:22pm Respiratory Rate 16 breaths/min (10 - 20) 12/26/2016 2:22pm O2 Sat by Pulse Oximetry 97 % (90 - 100) 12/26/2016 2:22pm Oxygen Delivery Method Room Air 12/26/2016 2:22pm Oxygen Delivery Method Room Air 12/26/2016 9:02am Oxygen Flow Rate 1.50 L/min 11/21/2016 1:15pm Blood Pressure 103/60 mm Hg 12/26/2016 2:22pm Blood Pressure Source Automatic Cuff 12/26/2016 2:22pm Height (Feet) 5 feet 12/26/2016 9:06am Height (Inches) 3.00 inches 12/26/2016 9:06am Weight (Kilograms) 76.600 kg 12/26/2016 12:05pm Body Mass Index (BMI) 32.9 12/26/2016 9:06am Results Laboratory Results Test Name Result Units Flags Reference Collection Date/Time Result Date/ Time Comments Prothromb Time International Ratio 1.49 H 0.76-1.04 11/28/2016 8:52am 11/28/2016 9:15am THERAPUTIC RANGE=2.00-3.00 FOR ANTI-THROMBOSIS THERAPUTIC RANGE=2.50-3.50 FOR IMPLANTED VALVE White Blood Count 1.4 T/MM3 *L 4.5-11.0 [...] FL H 36.9-50.2 12/13/2016 7:39pm 12/13/2016 7:50pm Platelet Count 34 T/MM3 L 130-400 12/13/2016 7:39pm 12/13/2016 7:50pm Neutrophils % (Manual) [...] CLEAR 12/13/2016 7:39pm 12/13/2016 7:52pm Urine Specific [place] 1.020 1.015-1.025 12/13/2016 7:39pm 2016 7:52pm Urine [...] CULT NOT INDICATED 12/13/2016 7:39pm 2016 8:04pm Microbiology Results Procedure Source Organism/Result Collection Date/Time Result Date/Time Result Status Urine Culture Urine, Clean Catch-Midstream MIXED LEOPOLDO 12/13/2016 7:39pm 12/15/2016 7:45am Final Blood Culture Peripheral/Iv Start NO GROWTH AFTER 5 DAYS 12/13/2016 8:10pm 12/18/2016 8:16pm Final Name: PAULETTE URENA Unit #: [id number] : 1960 Sex: F Admit Date: Loc / Svc: SRG Discharge Date: DIAGNOSTIC IMAGING REPORT Report #: [id number] [facility] DAMON Ram Indication:ITS.REASON Procedure:US GUIDE PARACENTESIS, SUBSEQ PARACENTESIS: The procedure including the benefits, risks, and alternatives were explained in detail to the patient. All of her questions were answered. She stated that they understood and wished to proceed. Informed consent was obtained. A preprocedural timeout was performed to confirm the correct patient and procedure. Using sterile technique, local xylocaine anesthesia, and sonographic guidance throughout, a paracentesis is done from a right lateral approach. 9000 ml of straw colored fluid was taken off without complication. Following this, the patient was taken to recovery room to finish her albumin infusion. Impression: Successful paracentesis performed with 9 L of fluid removed. Angel Duncan RPA/CATARINA [...] platelet count Completed 10/11/16 Prothrombin time Completed 10/11/16477567"INFUSION, ALBUMIN (HUMAN), 25%, 50 ML" Completed 10/11/16181336"INFUSION, ALBUMIN (HUMAN), 25%, 50 ML" Completed 10/11/16254203"INFUSION, ALBUMIN (HUMAN), 25%, 50 ML" Completed 10/11/16 Routine venipuncture Completed 11/01/16 Abd paracentesis w/imaging Completed 11/01/16 ANGEL DUGAN MD Automated platelet count Completed 11/01/16 Prothrombin time Completed 11/01/16727876"INFUSION, ALBUMIN (HUMAN), 25%, 50 ML" Completed 11/01/16 Abd paracentesis w/imaging Completed 11/14/16 ANGEL DUGAN MD [id number]"INFUSION, NORMAL SALINE SOLUTION , 250 CC" Completed 11/14/16836668"INFUSION, ALBUMIN (HUMAN), 25%, 50 ML" Completed 11/14/16 Abd paracentesis w/imaging Completed 11/21/16 ANGEL DUGAN MD chng smoking 3-10 min Completed 11/21/16"INFUSION, ALBUMIN (HUMAN), 25%, 50 ML" Completed 11/21/16 Routine venipuncture Completed 11/28/16 Abd paracentesis w/imaging Completed 11/28/16 ANGEL DUGAN MD Automated platelet count Completed 11/28/16 Prothrombin time Completed 11/28/16591286"INFUSION, NORMAL SALINE SOLUTION , 250 CC" Completed 11/28/16894970"INFUSION, ALBUMIN (HUMAN), 25%, 50 ML" Completed 11/28/16997346"INFUSION, ALBUMIN (HUMAN), 25%, 50 ML" Completed 11/28/16 Abd paracentesis w/imaging Completed 12/06/16 ANGEL DUGAN MD [id number]"INFUSION, NORMAL SALINE SOLUTION , 250 CC" Completed 12/06/16"INFUSION, ALBUMIN (HUMAN), 25%, 50 ML" Completed 12/06/16 Abd paracentesis w/imaging Completed 12/12/16 ANGEL DUGAN MD chng smoking 3-10 min Completed 12/12/16730965"INFUSION, NORMAL SALINE SOLUTION , 250 CC" Completed 12/12/16719921"INFUSION, ALBUMIN (HUMAN), 25%, 50 ML" Completed 12/12/16976236"INFUSION, ALBUMIN (HUMAN), 25%, 50 ML" Completed 12/12/16795191"INFUSION, ALBUMIN (HUMAN), 25%, 50 ML" Completed 12/12/16 [...] Location Arrival/Admit Date Discharge/Depart Date Attending Provider [facility] 12/26/16 8:34am 12/26/16 3:25pm ANGEL DUGAN MD [facility] 12/19/16 8:42am 12/19/16 4:10pm ABEBA COTTON MD Departed Emergency Room [facility] 12/13/16 7:04pm 12/13/16 10: 42pm FEBRUARYMARCO DO [facility] 12/12/16 8:05am 12/12/16 3:57pm ANGEL DUGAN MD [facility] 12/06/16 8:18am 12/06/16 1:50pm DUGAN ANGEL MD [facility] 11/28/16 8:16am 11/28/16 5:30pm DUGAN ANGEL MD [facility] 11/21/16 8:54am 11/21/16 4:40pm ANGEL DUGAN MD [facility] 11/14/16 8:48am 11/14/16 2:44pm ANGEL DUGAN MD [facility] 11/01/16 11:04am 11/01/16 5:08pm ANGEL DUGAN MD [facility] 10/11/16 9:03am 10/11/16 3:25pm ANGEL DUGAN MD
--- OUTSIDE RECORDS SUMMARY | 2017-01-15 00:29 | XMS REPORT ---
Author Author Aleena Rosenthal [facility] Address [address] [id number] Care Team Providers Care Claim Clinician Name Role Phone Aleena Rosenthal Unavailable [phone] PROBLEMS Type Condition ICD9-CM Code AKM85-NV Code Onset Dates Condition Status SNOMED Code Problem Cirrhosis of liver with ascites, unspecified hepatic cirrhosis type K74.60 Active 67445167 Problem Hepatic encephalopathy K72.90 Active 06168573 Problem Diarrhea, unspecified type R19.7 Active 86493930 Problem Encounter for screening colonoscopy Z12.11 Active 500476871 Problem Immunization deficiency Z28.3 Active 449556106 Problem Other ascites R18.8 Active 331442613 Problem Pharyngoesophageal dysphagia R13.14 Active 62282951 Problem Other cirrhosis of liver K74.69 Active 04660242 Problem Chronic hepatitis C without hepatic coma B18.2 Active 551993296 Problem Pancytopenia D61.818 Active 854917814 Problem Hepatitis C, chronic B18.2 Active 188400469 Assessment Cirrhosis of liver K74.60 Nov, Active 75543671 Problem Cirrhosis of liver K74.60 Active 35010189 Problem Hypothyroidism E03.9 Active 44242286 Problem Chronic obstructive pulmonary disease, unspecified J44.9 Active 30392558 ALLERGIES Substance Reaction Event Type Date Status Tetracycline *chemicals* Unknown Non Drug Allergy Nov, Active Penicillamine *assorted Classes* Unknown Non Drug Allergy Nov, Active Alcohol *nutrients* Unknown Non Drug Allergy Nov, Active Codeine Phosphate *analgesics Opioid* Unknown Non Drug Allergy Nov, Active Adhesive Tape *medical Devices* Unknown Non Drug Allergy Nov, Active Aspirin *analgesics Nonnarcotic* Unknown Non Drug Allergy Nov, Active Reglan *gastrointestinal Agents Misc* Unknown Non Drug Allergy Nov, Active Acetaminophen (alcohol Free) *analgesics Nonnarco Unknown Non Drug Allergy Nov, Active spironolactone rash Non Drug Allergy Nov, Active SOCIAL HISTORY No smoking Hx information available PLAN OF CARE Activity Details Pending Test DEXA After diagnostic testing,Reason: VITAL SIGNS Height 64.5 in 2016-11-19 Weight 175 lbs 2016-11-19 Heart Rate 82 /min 2016-11-19 Respiratory Rate 18 /min 2016-11-19 BMI 29.57 kg/m2 2016-11-19 Blood pressure systolic 100 mm Hg 2016-11-19 Blood pressure diastolic 70 mm Hg 2016-11-19 MEDICATIONS Medication Instructions Dosage Frequency Start Date End Date Duration Status HydrOXYzine HCl 25 MG Orally every 8 hrs 1 tablet as needed 8h Nov, 30 day(s) Active Levothyroxine Sodium 50 MCG Orally Once a day 1 tablet on an empty stomach in the morning 24h Jul, 90 days Active Furosemide 80 MG Orally once a day 1 tablet(dose increase) 24h Active RESULTS No Results PROCEDURES Procedure Date Ordered Related Diagnosis Body Site COMPLETE BLOOD COUNT W/AUTO DIFF Nov 19, 2016 COMPREHEN METABOLIC PANEL Nov 19, 2016 Hep A, adult Nov 19, 2016 PROTHROMBIN TIME SO Nov 19, 2016 Office Visit, Est Pt., Level 5 Nov 19, 2016 IMMUNIZATION ADMIN Nov 19, 2016 IMMUNIZATIONS Vaccine Route Administration Date Status Hep A, adult IM Intramuscular Nov 19, 2016 Administered
--- OUTSIDE RECORDS SUMMARY | 2017-01-15 00:29 | XMS REPORT | Continuity of Care Document ---
Author Author [facility] Organization [facility] Address Unknown Phone Unavailable Allergies Active Description Code Type Severity Reaction Onset Reported/Identified Relationship to Patient Clinical Status Yes Alcohol Miscellaneous Allergy Adverse Reaction / Adverse Reaction 09/22/2009 Yes Metoclopramide Drug Allergy Moderate Adverse Reaction 09/22/2009 Yes Penicillins Drug Allergy Moderate Adverse Reaction 09/22/2009 Yes Tetracycline Drug Allergy Moderate Adverse Reaction 09/22/2009 Yes Iodinated Contrast Media - IV Drug Allergy Severe Anaphylaxis 10/22/2012 Medications Problems Date Dx Coded Attending Type Code Diagnosis Diagnosed By 10/21/2012 Reshma Hills MD Final 070.54 CHR VH C W/O COMA 10/21/2012 Reshma Hills MD Final 244.9 HYPOTHYROIDISM NOS 10/21/2012 Reshma Hills MD Final 284.19 PANCYTOPENIA NEC 10/21/2012 Reshma Hills MD Final 305.1 TOBACCO USE DISORDER 10/21/2012 Reshma Hills MD Final 571.5 LIVER CIRRHOSIS W/O ALC 10/21/2012 Reshma Hills MD Final 789.00 ABDOMINAL PAIN-SITE NOS 10/21/2012 Reshma Hills MD Final 789.30 ABD/PELV SWELL-SITE NOS 11/29/2016 Patrick Solitario MD K74.60 UNSPECIFIED CIRRHOSIS OF LIVER 12/16/2016 Patrick Solitario MD K74.60 UNSPECIFIED CIRRHOSIS OF LIVER 12/16/2016 Patrick Solitario MD K74.60 UNSPECIFIED CIRRHOSIS OF LIVER Procedures Results Encounters ACCT No. Visit Date/Time Discharge Status Pt. Type Provider Facility Loc./Unit Complaint [id number] 10/21/2012 14:51:00 2012 12:22:00 DIS Inpatient Reshma Hills MD [facility]
--- OUTSIDE RECORDS SUMMARY | 2017-01-15 00:29 | XMS REPORT ---
Author Author Dionicio Dumont [facility] Address [address] [place] [address] Care Team Providers Care Framing Mill Supervisor Name Role Phone Dionicio Dumont Unavailable [phone] PROBLEMS Type Condition ICD9-CM Code EFA50-QR Code Onset Dates Condition Status SNOMED Code Problem Hepatitis C, chronic B18.2 Active 996934898 Problem Chronic obstructive pulmonary disease, unspecified J44.9 Active 24264692 Problem Cirrhosis of liver K74.60 Active 37359972 Assessment Hepatitis C, chronic B18.2 Sep, Active 050190958 Problem Hypothyroidism E03.9 Active 23261861 Problem Pancytopenia D61.818 Active 935618181 Problem Other cirrhosis of liver K74.69 Active 78567359 Problem Chronic hepatitis C without hepatic coma B18.2 Active 386750994 Problem Hepatic encephalopathy K72.90 Active 24656736 Problem Diarrhea, unspecified type R19.7 Active 45890244 Problem Other ascites R18.8 Active 795212074 Problem Pharyngoesophageal dysphagia R13.14 Active 92014869 ALLERGIES Unknown Allergies SOCIAL HISTORY No smoking Hx information available PLAN OF CARE VITAL SIGNS MEDICATIONS Medication Instructions Dosage Frequency Start Date End Date Duration Status Suprep Bowel Prep - Orally as directed as directed Aug, 1 day (s) Active Spironolactone 100 MG Orally Once a day 1 tablet 24h Jul, 90 days Active Milk Thistle Active Aleve 220 MG Orally daily 24h Active Levothyroxine Sodium 50 MCG Orally Once a day 1 tablet on an empty stomach in the morning 24h Jul, Active Furosemide 20 MG Orally once a day 1 tablet 24h 90 days Active RESULTS No Results PROCEDURES No Known procedures IMMUNIZATIONS No Known Immunizations
--- OUTSIDE RECORDS SUMMARY | 2017-01-15 00:29 | XMS REPORT | Continuity of Care Document ---
Author Author [facility] Organization [facility] Address Unknown Phone Unavailable Care Team Providers Care Manager Drug Name Role Phone ASHANTI GOEL Primary Care Physician [phone] Insurance Providers Guarantor Paulette Urena Address [address] [address] Email [email or web address] Policy Number [id number] Subscriber's Name Ronnell Urena Relationship 01 Spouse Group Number [id number] Advance Directives Directive Response Recorded Date/Time Advanced Directives Type None 12/13/16 7:08pm Chief Complaint and Reason for Visit Chief Complaint Abdominal Pain Reason for Visit Cellulitis of abdominal wall Problems Active Problems Medical Problem Onset Date Status Ascites Unknown Liver failure Unknown Past Problems Medical Problem Onset Date Cellulitis of abdominal wall Unknown Medications Current Home Medications Medication Dose Units Route Directions Days Qty Instructions Start Date Albuterol Sulfate (Proair Hfa 90 Mcg/Actuation) 8.5 Gm Hfa.aer.ad 1-2 Puff Inhalation Every 4 Hours as needed for Asthma 10/10/16 Cefpodoxime Proxetil 200 Mg Tablet 1 Tab Oral Twice A Day 7 Days 14 Tablet 12/13/16 Furosemide (Lasix) 20 Mg Tablet 4 Tab [...] Problem Response Recorded Date/Time Onset Date Status Hx Substance Use Y Marijuana (for pain), speed 12/13/2016 7:25pm Not Applicable Not Applicable Hx Alcohol Use No 12/13/2016 7:25pm Not Applicable Not Applicable Has the pt used tobacco in the last 12 months Yes 12/12/2016 8:25am Not Applicable Not Applicable Query Response Start Date Stop Date Smoking Status Never smoker Hospital Discharge Instructions No hospital discharge instructions. Plan of Care Discharge Date 12/13/16 10:42pm Disposition 01 DISCHARGED HOME, SELF-CARE Condition at Discharge Improved Instructions/Education Provided Cellulitis (ED) Prescriptions See Medication Section Referrals ASHANTI GOEL Order Date: 3 Days Address: [address] [place] [address] [phone] Note: Additional Instructions/Education You have an infection of your abdominal wall. Take the antibiotic as prescribed. Use naproxen as needed for pain. Follow up with your doctor next week. Care Plan and Goals Physician Care Plan Problem: Cellulitis Goal: Follow up with primary care provider Instructions: Take medications and follow care plan as discussed/written Functional Status No functional status results. Allergies, Adverse Reactions, Alerts Allergen Type Severity Reaction Status Last Updated Penicillin Allergy Intermediate TROUBLE BREATHING Active 12/13/16 Morphine Allergy Intermediate NAUSEA & VOMITING Active 12/13/16 Codeine Allergy Intermediate RASH Active 12/13/16 Spironolactone Allergy Mild RASH Active 12/13/16 Alcohol Allergy Unknown RASH Active 12/13/16 Tetracycline Allergy Unknown UNKNOWN Active 12/13/16 Metoclopramide Allergy Unknown UNKNOWN Active 12/13/16 ETOH Allergy Unknown UNKNOWN Active 01/12/08 Immunizations Query Response on File Recorded Date/Time Hx Influenza Vaccination N REFUSED 12/12/16 8:25am Hx Pneumococcal Vaccination No 12/12/16 8:25am Hx Influenza Vaccination N REFUSED 12/12/16 8:25am Influenza Vaccine Hx NO HISTORY 12/13/16 7:25pm Vital Signs Acute Vital Signs Vital Response Date/Time Temperature (Fahrenheit) 97.9 deg F (96.8 - 99.1) 12/13/2016 10:42pm Temperature (Calculated Celsius) 36.91512 degrees C (36.0 - 37.3) 12/13/2016 10:42pm Temperature Source Oral 11/28/2016 12:04pm Pulse Rate (adult) 66 bpm (60 - 100) 12/13/2016 10:42pm Respiratory Rate 16 breaths/min (10 - 20) 12/13/2016 10:42pm O2 Sat by Pulse Oximetry 100 % (90 - 100) 12/13/2016 10:42pm Oxygen Delivery Method Room Air 12/12/2016 11:34am Oxygen Delivery Method Room Air 12/12/2016 2:30pm Oxygen Flow Rate 1.50 L/min 11/21/2016 1:15pm Blood Pressure 94/52 mm Hg 12/13/2016 10:42pm Blood Pressure Source Automatic Cuff 12/12/2016 2:30pm Height (Feet) 5 feet 12/13/2016 7:08pm Height (Inches) 3.00 inches 12/13/2016 7:08pm Weight (Kilograms) 72.900 kg 12/13/2016 7:08pm Body Mass Index (BMI) 28.0 12/13/2016 7:08pm Results Laboratory Results Test Name Result Units Flags Reference Collection Date/Time Result Date/ Time Comments Body Fluid Color YELLOW 09/19/2016 2:55pm 09/19/2016 4:14pm Body Fluid Turbidity SLIGHTLY CLOUDY 09/19/2016 2:55pm 09/19/2016 4 :14pm Body Fluid Total Nucleated Cells 185 /MM3 09/19/2016 2:55pm 2015 4:47pm Body Fluid RBC 3000 /MM3 09/19/2016 2:55pm 09/19/2016 4:47pm Body Fluid Neutrophils 12 % 09/19/2016 2:55pm 09/19/2016 4:47pm Body Fluid Lymphocytes 23 % 09/19/2016 2:55pm 09/19/2016 4:47pm Body Fluid Monocytes 63 % 09/19/2016 2:55pm 09/19/2016 4:47pm Body Fluid Eosinophils 0 % 09/19/2016 2:55pm 09/19/2016 4:47pm Body Fluid Basophils 0 % 09/19/2016 2:55pm 09/19/2016 4:47pm Body Fluid Other Cells (%) 2 % 09/19/2016 2:55pm 09/19/2016 4:47pm Body Fluid Type PARACENTESIS FLUID 09/19/2016 2:55pm 09/19/2016 4: 14pm Miscellaneous Cytology SEND OUT 09/19/2016 2:55pm 09/19/2016 4: 28pm Body Fluid Albumin <1.5 g/dL 09/19/2016 2:55pm 09/19/2016 9:37pm Body Fluid Type Paracentes 09/19/2016 2:55pm 09/19/2016 4:11pm Albumin, Fluid performed at [facility], [address] [id number] Sustainability Purchasing Agent Bernardino Grider, DO Body Fluid Total Protein <3.0 g/dL 09/19/2016 2:55pm 09/19/2016 9: 37pm Protein, Fluid performed at [facility], [address], [place] [address] Sustainability Purchasing Agent Bernardino Grider, DO Prothromb Time International Ratio 1.49 H 0.76-1.04 [...] CLEAR 12/13/2016 7:39pm 12/13/2016 7:52pm Urine Specific [place] 1.020 1.015-1.025 12/13/2016 7:39pm 2016 7:52pm Urine [...] Organism/Result Collection Date/Time Result Date/Time Result Status Body Fluid Culture Paracentesis Fluid NO GROWTH AFTER 5 DAYS 09/19/2016 2: 55pm 09/24/2016 3:51pm Final Urine Culture Urine, Clean Catch-Midstream CULTURE INITIATED - RESULTS PENDING 12/13/2016 7:39pm 12/13/2016 9:51pm Preliminary Blood Culture Peripheral/Iv Start CULTURE INITIATED - RESULTS PENDING 12/13 8:10pm 12/13/2016 8:17pm Preliminary Procedures Procedure Status Date Provider(s) Abd paracentesis w/imaging Completed 09/19/16 CHASE DUVALL MD Echo guide for biopsy Completed 09/19/16 Assay of urine albumin Completed 09/19/16 Assay of protein other Completed 09/19/16 Automated platelet count Completed 09/19/16 Prothrombin time Completed 09/19/16 Culture othr specimn aerobic Completed 09/19/16 Body fluid cell count Completed 09/19/16 Routine venipuncture Completed 10/11/16 Abd paracentesis w/imaging Completed 10/11/16 Abd paracentesis w/imaging Completed 10/11/16 Abd paracentesis w/imaging Completed 10/11/16 Abd paracentesis w/imaging Completed 10/11/16 Abd paracentesis w/imaging Completed 10/11/16 Abd paracentesis w/imaging Completed 10/11/16 Abd paracentesis w/imaging Completed 10/11/16 Abd paracentesis w/imaging Completed 10/11/16 Echo guide for biopsy Completed 10/11/16 Automated platelet count Completed 10/11/16 Prothrombin time Completed 10/11/16 067919"INFUSION, ALBUMIN (HUMAN), 25%, 50 ML" Completed 10/11/16906501"INFUSION, ALBUMIN (HUMAN), 25%, 50 ML" Completed 10/11/16220810"INFUSION, ALBUMIN (HUMAN), 25%, 50 ML" Completed 10/11/16 Routine venipuncture Completed 11/01/16 Abd paracentesis w/imaging Completed 11/01/16 ANGEL HARKINS MD Automated platelet count Completed 11/01/16 Prothrombin time Completed 11/01/16442239"INFUSION, ALBUMIN (HUMAN), 25%, 50 ML" Completed 11/01/16 Abd paracentesis w/imaging Completed 11/14/16 ANGEL HARKINS MD [id number]"INFUSION, NORMAL SALINE SOLUTION , 250 CC" Completed 11/14/16589039"INFUSION, ALBUMIN (HUMAN), 25%, 50 ML" Completed 11/14/16 Abd paracentesis w/imaging Completed 11/21/16 ANGEL HARKINS MD Behav chng smoking 3-10 min Completed 11/21/16835493"INFUSION, ALBUMIN (HUMAN), 25%, 50 ML" Completed 11/21/16 Routine venipuncture Completed 11/28/16 Abd paracentesis w/imaging Completed 11/28/16 ANGEL HARKINS MD Automated platelet count Completed 11/28/16 Prothrombin time Completed 11/28/16"INFUSION, NORMAL SALINE SOLUTION , 250 CC" Completed 11/28/16"INFUSION, ALBUMIN (HUMAN), 25%, 50 ML" Completed 11/28/16"INFUSION, ALBUMIN (HUMAN), 25%, 50 ML" Completed 11/28/16 Abd paracentesis w/imaging Completed 12/06/16 ANGEL HARKINS MD "INFUSION, NORMAL SALINE SOLUTION , 250 CC" Completed 12/06/16"INFUSION, ALBUMIN (HUMAN), 25%, 50 ML" Completed 12/06/16 Encounters Encounter Location Arrival/Admit Date Discharge/Depart Date Attending Provider Departed Emergency Room [facility] 12/13/16 7:04pm 12/13/16 10: 42pm [facility] 8[facility] 12/12/16 3:57pm [facility] 8:18am 12/06/16 1:50pm ANGEL HARKINS MD Departed [facility] 11/28/16 8:16am 11/28/16 5:30pm ANGEL HARKINS MD [facility] 11/21/16 8:54am 11/21/16 4:40pm [facility] 8:48am 11/14/16 2:44pm [facility]01/16 11:04am 11/01/16 5:08pm ANGEL HARKISN MD [facility] 10/11/16 9:03am 10/11/16 3:25pm ANGEL HARKINS MD [facility] 09/19/16 12:01pm 09/19/16 6:03pm CHASE DUVALL MD Recent Diagnosis
--- OUTSIDE RECORDS SUMMARY | 2017-01-15 00:30 | XMS REPORT | Continuity of Care Document ---
Author Author [facility] Organization [facility] Address Unknown Phone Unavailable Care Team Providers Care Derrick Builder Name Role Phone ASHANTI GOEL Primary Care Physician [phone] Insurance Providers Guarantor Paulette Urena Address [address] [place] [id number] Email [email or web address] Payer [employer] Healthcare Policy Number [id number] Subscriber's Name RomelRonnell Sanchez Relationship 01 Spouse Group Number [id number] Advance Directives Directive Response Recorded Date/Time Ordered Resuscitation Status Full Code 12/19/16 7:37am Resuscitation Documents on File No 12/19/16 8:53am DPOA for Healthcare Only No 12/19/16 8:53am Living Will No 12/19/16 8:53am Problems Active Problems Medical Problem Onset Date [...] Date/Time Onset Date Status Reason for Hospitalization CIRRHOSIS OF LIVER WITH ACITES 12/19/2016 3:43pm Not Applicable Not Applicable Chewing Tobacco Status No 12/19/2016 8:56am Not Applicable Not Applicable Hx Substance Use Y Marijuana (for pain), speed 12/19/2016 8:56am Not Applicable Not Applicable Hx Alcohol Use No 12/19/2016 8:56am Not Applicable Not Applicable Has the pt used tobacco in the last 12 months Yes 12/19/2016 8:56am Not Applicable Not Applicable Query Response Start Date Stop Date Smoking Status Former smoker Hospital Discharge Instructions Instructions: Care Instructions: I was in the hospital because (patient own words): to have acites fluid drained Discharge Diet: TOLERATED Discharge Activity: -RESTART MEDS STOPPED FOR THIS PROCEDURE AT NEXT DAY. -MAY RETURN TO WORK THE NEXT DAY. MAY DRIVE STARTING NEXT DAY. -MAY SHOWER/BATHE STARTING THE NEXT DAY. Follow Up Appointments: N/A Pending Lab / Results: No Pending Lab Patient Instructions: N/A Expected Signs/Symptoms: N/A Notify Physician If: N/A During Business Hours:: Please call the physician's office at After Business Hours:: Please call [phone] and have the blender operator page the physician. Pain Management/Treatment: N/A Pain Scale Utilized to Educate Patient: 0-10 Pain Scale Wound/Incision Care: N/A Durable Medical Equipment: N/A Condition at time of discharge: Fair Plan of Care Discharge Date 12/19/16 4:10pm Instructions/Education Provided Abdominal Paracentesis (DC) Prescriptions See Medication Section Functional Status Query Response Date Recorded Mobility Status Ambulatory December 19, 2016 9:05am Assistive Devices None December 19, 2016 9:05am Activity Limitations None December 19, 2016 9:05am Feeding Ability Independent December 19, 2016 9:05am Toileting Ability Independent December 19, 2016 9:05am Grooming Ability Independent December 19, 2016 9:05am Dressing Ability Independent December 19, 2016 9:05am Driving Ability Independent December 19, 2016 9:05am Housework Ability Independent December 19, 2016 9:05am Meal Preparation Ability Independent December 19, 2016 9:05am Stair Climbing Ability Independent December 19, 2016 9:05am Ability to complete ADL's impeded by No change December 19, 2016 9:05am Cognitive/Perceptual Impairments Impaired vision December 19, 2016 9:05am Visual Assistive Devices Glasses With patient December 19, 2016 9:05am Allergies, Adverse Reactions, Alerts Allergen Type Severity Reaction Status Last Updated Penicillin Allergy Intermediate TROUBLE BREATHING Active 12/19/16 Morphine Allergy Intermediate NAUSEA & VOMITING Active 12/19/16 Codeine Allergy Intermediate RASH Active 12/19/16 Spironolactone Allergy Mild RASH Active 12/19/16 Alcohol Allergy Severe RASH Active 12/19/16 Tetracycline Allergy Unknown UNKNOWN Active 12/19/16 Metoclopramide Allergy Unknown UNKNOWN Active 12/19/16 ETOH Allergy Unknown UNKNOWN Active 04/08/08 Immunizations Query Response on File Recorded Date/Time Hx Influenza Vaccination N REFUSED 12/19/16 8:56am Hx Pneumococcal Vaccination No 12/19/16 8:56am Hx Influenza Vaccination N REFUSED 12/19/16 8:56am Influenza Vaccine Hx NO HISTORY 12/13/16 7:25pm Vital Signs Acute Vital Signs Vital Response Date/Time Temperature (Fahrenheit) 98.1 deg F (96.8 - 99.1) 12/19/2016 9:25am Temperature (Calculated Celsius) 36.45298 degrees C (36.0 - 37.3) 12/19/2016 9:25am Temperature Source Oral 11/28/2016 12:04pm Pulse Rate (adult) 75 bpm (60 - 100) 12/19/2016 2:00pm Respiratory Rate 20 breaths/min (10 - 20) 12/19/2016 11:39am O2 Sat by Pulse Oximetry 99 % (90 - 100) 12/19/2016 2:00pm Oxygen Delivery Method Room Air 12/19/2016 11:39am Oxygen Delivery Method Room Air 12/19/2016 2:00pm Oxygen Flow Rate 1.50 L/min 11/21/2016 1:15pm Blood Pressure 86/53 mm Hg 12/19/2016 2:00pm Blood Pressure Source Automatic Cuff 12/19/2016 2:00pm Height (Feet) 5 feet 12/19/2016 8:52am Height (Inches) 3.00 inches 12/19/2016 8:52am Weight (Kilograms) 81.200 kg 12/19/2016 8:52am Body Mass Index (BMI) 31.7 12/19/2016 8:52am Results Laboratory Results Test Name Result Units [...] CLEAR 12/13/2016 7:39pm 12/13/2016 7:52pm Urine Specific [place] 1.020 1.015-1.025 12/13/2016 7:39pm 2016 7:52pm Urine [...] 8:16pm Final Name: PAULETTE URENA Unit #: [id number] : 1960 Sex: F Admit Date: Loc / Svc: SRG Discharge Date: DIAGNOSTIC IMAGING REPORT Report #: [id number] [facility] Yo DAMON Indication:ITS.REASON Procedure:US GUIDE PARACENTESIS, SUBSEQ PARACENTESIS: The [...] is done from a right lateral approach. 7000 ml of straw colored fluid was taken off without complication. Following this, the patient was taken back to her recovery room to finish her albumin infusion. Impression: Successful paracentesis performed with 7 L of fluid removed. Angel Duncan RPA/CATARINA [...] platelet count Completed 10/11/16 Prothrombin time Completed 10/11/16616086"INFUSION, ALBUMIN (HUMAN), 25%, 50 ML" Completed 10/11/16980108"INFUSION, ALBUMIN (HUMAN), 25%, 50 ML" Completed 10/11/16969862"INFUSION, ALBUMIN (HUMAN), 25%, 50 ML" Completed 10/11/16 Routine venipuncture Completed 11/01/16 Abd paracentesis w/imaging Completed 11/01/16 ANGEL HARKINS MD Automated platelet count Completed 11/01/16 Prothrombin time Completed 11/01/16488704"INFUSION, ALBUMIN (HUMAN), 25%, 50 ML" Completed 11/01/16 Abd paracentesis w/imaging Completed 11/14/16 ANGEL HARKINS MD [id number]"INFUSION, NORMAL SALINE SOLUTION , 250 CC" Completed 11/14/16116426"INFUSION, ALBUMIN (HUMAN), 25%, 50 ML" Completed 11/14/16 [...] ALBUMIN (HUMAN), 25%, 50 ML" Completed 12/06/16 Routine venipuncture Completed 12/13/16 Ct abd & [...] CONTRAST MATERIAL, 300-399 MG/ML IODINE C Completed Encounters Encounter Location Arrival/Admit Date Discharge/Depart Date Attending Provider Departed [facility] 12/19/16 8:42am 12/19/16 4:10pm BRUCE COTTON MD Departed Emergency Room [facility] 12/13/16 7:04pm 12/13/16 10: 42pm [facility] 8[facility] 12/12/16 3:57pm [facility] 8:18am 12/06/16 1:50pm [facility] 8:16am 11/28/16 5:30pm ANGEL HARKINS MD [facility] 11/21/16 8:54am 11/21/16 4:40pm [facility] 8:48am 11/14/16 2:44pm ANGEL HARKINS MD Depart[facility] 11/01/16 11:04am 11/01/16 5:08pm [facility] 9:03am 10/11/16 3:25pm ANGEL HARKINS MD
[2017-01-15 00:35] VITALS: TEMP 98.4; Ht 165.1 cm; Wt 79.6 kg
--- NOTE | 2017-01-15 00:35 | NUR ---
ROOM TO ROOM VIA WHEELCHAIR.
[2017-01-15] MEDS ORDERED: MORPHINE SULFATE 4 MG SYRINGE IV ONE ×2 (01:00→02:45)
[2017-01-15] MEDS ORDERED: ONDANSETRON 4mg/2ml INJECTION IV ONE ×2 (01:00→03:45)
--- NOTE | 2017-01-15 01:02 | ERPDOC ---
Departure Disposition Decision Date: Jan 15, 2017 Disposition Decision Time: 03:27 Disposition: 01 DISCHARGED HOME, SELF-CARE Impression Impression Impression: Primary Impression: Hematoma of abdominal wall Encounter type: initial encounter Qualified Codes: S30.1XXA - Contusion of abdominal wall, initial encounter Severity: Severe Condition: Improved Seen By: Physician only Referrals: ASHANTI GOEL (PCP) Patient Instructions: Hematoma (ED) Problems/Meds/Labs Reviewed?: Yes Medications reviewed and manag: Yes Additional Instructions: Cefpodoxime 200 mg twice daily for 10 days to prevent abdominal wall cellulitis [place] 5 mg one to 2 tablets every 6 hours as needed for pain Zofran 4 mg one tablet every 6 hours as needed for nausea Follow up care ordered?: Yes Mental Status: Alert, Oriented Scripts Hydrocodone/Acetaminophen ([place] 5-325 Tablet) 5-325 Tablet 1-2 TAB PO QID Y for PAIN, #30 Prov: TANNER ANDREWS MD 01/15/17 Ondansetron (Zofran Odt) 4 Mg Tab.rapdis 4 MG PO Q6HR, #30 TAB Oral disintegrating tablet Prov: TANNER ANDREWS MD 01/15/17 Cefpodoxime Proxetil (Cefpodoxime Proxetil) 200 Mg Tablet 1 TAB PO BID, #20 TAB Prov: TANNER ANDREWS MD 01/15/17 HPI - Abdominal Pain General Chief Complaint: Abdominal Pain Stated Complaint: ABD PAIN Time Seen by Provider: 00:50 Source: patient, family History/Exam Limitations: no limitations HPI - Abdominal Pain Initial Comments Patient presents with left abdominal wall pain similar to when she had cellulitis several weeks ago. Patient has hepatitis C with liver failure, chronic ascites, and has weekly paracentesis. Last paracentesis was 4 days ago, and within 2 days the patient developed sharp left sided abdominal pain that she describes as a piercing burning sensation. 2 days ago the patient contacted her primary care provider, was started on Keflex 500 mg 3 times daily, but has not had improvement. Occurred At: home Onset: Gradual Quality: burning, sharpness Location: LUQ, LLQ, left flank 1 - Moderate pain/tenderness with induration subcutaneously. Allergies: Coded Allergies: alcohol (Verified Allergy, Severe, RASH, 01/15/17) REPORTS NUTRITIONAL ALCOHOL ALLERGY. (MOUTHWASH, VANILLA EXTRACT) Penicillins (Verified Allergy, Intermediate, TROUBLE BREATHING, 01/15/17) Hives, trouble breathing, rash codeine (Verified Allergy, Intermediate, RASH, 01/15/17) senior living increased difficult breathing morphine (Verified Allergy, Intermediate, NAUSEA & VOMITING, 01/15/17) spironolactone (Verified Allergy, Mild, RASH, 01/15/17) metoclopramide (Verified Allergy, Unknown, UNKNOWN, 01/15/17) tetracycline (Verified Allergy, Unknown, UNKNOWN, 01/15/17) Uncoded Allergies: ETOH (Allergy, Unknown, UNKNOWN, 01/12/08) Past History Past Medical History Metabolic: hypothyroidism Respiratory: COPD Infectious: hepatitis C Vaccines Hx Influenza Vaccination: No (REFUSED) Hx Pneumococcal Vaccination: No Review of Systems Constitutional Constitutional: DENIES: appetite decrease, appetite increase, chills, dizziness , fever, weakness ENMT Ears: DENIES: pain Hearing: DENIES: hearing loss, tinnitus Balance: DENIES: vertigo Mouth/Throat: DENIES: change in swallowing, change in voice, hoarsness, painful swallowing, sore throat Cardiovascular Cardiac: DENIES: chest pain, dyspnea on exertion Rhythm/Rate: DENIES: irregular beat, palpitations, tachycardia Vascular: DENIES: pedal edema Pulmonary Respiratory: DENIES: cough, dyspnea, pleuritic chest pain GI Upper Abdomen: pain, DENIES: dysphagia, food intolerances, heartburn/ indigestion, hematemesis, nausea, vomiting Lower Abdomen: pain, DENIES: blood in stool, tracy-colored stools, constipation , diarrhea, melena, painful BM General: DENIES: burning, dysuria, frequency, pain, urgency Musculoskeletal General: DENIES: cramps, joint pain, joint swelling, pain, weakness Integumentary Skin: DENIES: rash, sores Neurological General: DENIES: headache, numbness, tingling, vertigo, weakness Psychiatric Psychiatric: DENIES: anxiety, depression, nervousness Physical Exam General General Nourishment: well nourished, well developed, appears stated age General Body Habitus: well groomed Vitals and Pain First Documented Vital Signs Date Time Temp Pulse Resp B/P Pulse Ox O2 Delivery O2 Flow Rate FiO2 01/15/17 00:35 98.4 99 18 126/65 100 Room Air Weight: Kilograms: 79.600 Height (feet): 5 Height (inches): 5.00 Triage Pain Scale: RN VS reviewed by Provider: Yes Normal Exams: Head: Normocephalic w/o trauma Eyes: Pupils are PERRLA w/ EOMI, No scleral icterus, irritation, or foreign bodies noted ENMT: No facial trauma, nasal exudates, pharyngeal erythema, or exudates are noted Neck: Full range of motion, without adenopathy, JVD, bruits or thyromegaly Chest/Resp: Clear all reyes, with good airflow, and symmetry bilaterally CV: Regular rate and rhythm, without murmur or gallop, Pulses 2+ all extremities, capillary refill, <2 seconds all ext., no pedal edema noted Lymphatic: No lymphadenopathy, or lymphedema noted Musculoskeletal: No tenderness, or deformity noted, good range of motion, all extremities Neurologic: Patient is alert, and oriented, cranial nerves, motor/sensory/ cerebellar, exams w/o gross deficits, to observation Psychiatric: Patient exhibits, appropriate attention, emotion and affect Abdomen (brief) Abdominal Brief: FOUND: bowel normo active x4, distended (moderate ascites), hepatosplenomegaly (hepatomegaly), soft, tender (ordered diffuse left abdominal tenderness as diagrammed with induration, central most this at the site of paracentesis), NOT FOUND: pulsatile mass Integumentary (brief) Integumentary Brief: FOUND: dry, warm, NOT FOUND: pink (patient is quite pale) Progress Results/Orders Orders Procedure Category Date Status Time Iv Lock (Ed Only) EDM 01/15/17 Transmitted 00:54 Cbc W/Auto LAB 01/15/17 Complete Diff-Reflex Manual Cmp - Comprehensive LAB 01/15/17 Complete Metabolic Lipase LAB 01/15/[address] Abd/Pelvis CT 01/15/17 Logged W/Contrast Only Morphine Sulfate PHA 01/15/17 Complete (Morphine) 01:00 Ondansetron Inj PHA 01/15/17 Complete (Zofran) 01:00 Iohexol (Omnipaque) PHA 01/15/17 Complete 01:38 Normal Saline (Ns) PHA 01/15/17 Complete 01:38 Saline Flush (Iv PHA 01/15/17 Complete Flush) 01:38 Morphine Sulfate PHA 01/15/17 Complete (Morphine) 02:45 Lab Results Laboratory Tests Test 01/15/17 01:17 White Blood Count 1.7T/MM3 Red Blood Count 2.91M/MM3 Hemoglobin 7.7GM/DL Hematocrit 24.4% Mean Corpuscular Volume 83.8UM3 Mean Corpuscular Hemoglobin 26.5UUG Mean Corpuscular Hemoglobin Concent 31.6GM/DL RDW Standard Deviation 54.2FL Platelet Count 30T/MM3 Mean Platelet Volume UM3 Immature Granulocyte % (Auto) % Neutrophils (%) (Auto) % Lymphocytes (%) (Auto) % Monocytes (%) (Auto) % Eosinophils (%) (Auto) % Basophils (%) (Auto) % Absolute Immature Granulocyte (auto T/MM3 Absolute Neutrophils (auto) T/MM3 Absolute Lymphocytes (auto) T/MM3 Absolute Monocytes (auto) T/MM3 Absolute Eosinophils (auto) T/MM3 Absolute Basophils (auto) T/MM3 Neutrophils % (Manual) 62.0% Band Neutrophils % 2.0% Lymphocytes % (Manual) 24.0% Monocytes % (Manual) 8.0% Eosinophils % (Manual) 4.0% Absolute Neutrophils (Manual) 1.1T/MM3 Band Neutrophils # 0.0T/MM3 Lymphocytes # (Manual) 0.4T/MM3 Monocytes # (Manual) 0.1T/MM3 Eosinophils # (Manual) 0.1T/MM3 Poikilocytosis 1+ Anisocytosis 1+ Red Cell Morphology Comment Abnormal Turbidity < 20 Sodium Level 141MEQ/L Potassium Level 3.8MEQ/L Chloride Level 107MEQ/L Carbon Dioxide Level 22MEQ/L Anion Gap 12MEQ/L Blood Urea Nitrogen 29.0MG/DL Creatinine 1.1MG/DL Glomerular Filtration Rate Calc 52 BUN/Creatinine Ratio 26RATIO Glucose Level 104MG/DL Calculated Osmolality 277MOSM/KG Calcium Level 8.1MG/DL Total Bilirubin 1.10MG/DL Icterus Index < 2 Aspartate Amino Transf (AST/SGOT) 25U/L Alanine Aminotransferase (ALT/SGPT) 25U/L Alkaline Phosphatase 71U/L Total Protein 5.6G/DL Albumin 2.6G/DL Globulin 3.0G/DL Albumin/Globulin Ratio 0.9RATIO Lipase 113U/L Chemistry Specimen Hemolysis < 15 Medications Current ED Medications Morphine Sulfate (Morphine) 4 mg O ONCE IV Last administered on 01/15/17t 01: 20; Start 01/15/17 at 01:00; Stop 01/15/17 at 01:01; Status DC Ondansetron HCl (Zofran) 4 mg O ONCE IV Last administered on 01/15/17 01:20; Start 01/15/17 at 01:00; Stop 01/15/17 at 01:01; Status DC Iohexol 1 bottle 1 bottle STK-MED ONCE .ROUTE ; Start 01/15/17 at 01:38; Stop at 01:39; Status DC Sodium Chloride (NS) 100 ml @ As Directed STK-MED ONCE .ROUTE ; Start 01/15/17 at 01:38; Stop 01/15/17 at 01:39; Status DC Sodium Chloride (Iv Flush) 10 ml STK-MED ONCE .ROUTE ; Start 01/15/17 at 01:38; Stop 01/15/17 at 01:39; Status DC Morphine Sulfate (Morphine) 4 mg O ONCE IV Last administered on 01/15/17 03: 06; Start 01/15/17 at 02:45; Stop 01/15/17 at 02:46; Status DC Progress Progress Given morphine 4 mg, Zofran 4 mg, - CBC - significant low white blood cell count, however this is improved from 1.4- 1.7 today no left shift at this time CMP/L - normal CT abdomen - worsened left rectus abdominis hematoma from prior CT Patient is sent home with Cefpodoxime prescription, to prevent recurrent cellulitis of the abdominal wall, patient is also sent with pack and prescription for [place] 5 mg, Zofran 4 mg, and instructions to follow up routinely this week TANNER ANDREWS MD Jan 15, 2017 01:02
--- NOTE | 2017-01-15 01:17 | NUR ---
LAB LAB DRAWN FROM IV START
--- OUTSIDE RECORDS SUMMARY | 2017-01-15 01:28 | XMS REPORT | Continuity of Care Document ---
[facility] Address Unknown Phone Unavailable Care Team Providers Care Documentation Manager Name Role Phone Primary Care Physician Unavailable Source Comments Some departments are not documenting in the electronic medical record. If you do not see the information that you expected, contact Release of Information in the Health Information Management department at [phone] for further assistance in locating additional records[facility] Active Allergies and Adverse Reactions Not on File Current Medications Not on file Active Problems Not on file Most Recent Encounters Date Type Specialty Providers Description 10/31/2016 Telephone Transplant Surgery Peter Mccord, telecom network manager Social History Tobacco Use Types Packs/Day Years [...]
--- OUTSIDE RECORDS SUMMARY | 2017-01-15 01:29 | XMS REPORT | Continuity of Care Document ---
Author Author [facility] Organization [facility] Address Unknown Phone Unavailable Allergies [...] Status Pt. Type Provider Facility Loc./Unit Complaint [id number] 10/21/2012 14:51:00 2012 12:22:00 DIS Inpatient Reshma Hills MD [facility] on [address] [id number]
[2017-01-15] MEDS ORDERED: NORMAL SALINE 100 ML ONE (01:38)
[2017-01-15] MEDS ORDERED: SALINE FLUSH 10ml SYRINGE ONE (01:38)
[2017-01-15] MEDS ORDERED: IOHEXOL 300 MG/ML 100ml INJECTION ONE (01:38)
--- NOTE | 2017-01-15 01:57 | NUR ---
LAB PHONED LAB LOOKING FOR RESULTS, LAB HAD NOT BEEN RUN YET.
[2017-01-15 01:59] LABS: HCT - HEMATOCRIT 24.4 % (36-46); HGB - HEMOGLOBIN 7.7 GM/DL (12-16); MEAN CORPUSCULAR HGB 26.5 UUG (26-34); MEAN CORPUSCULAR HGB CONC(MCHC 31.6 GM/DL (31-37); MEAN CORPUSCULAR VOLUME 83.8 UM3 (80-100); RED BLOOD COUNT 2.91 M/MM3 (4.00-5.20)
[2017-01-15 02:00] LABS: WBC - WHITE BLOOD COUNT 1.7 T/MM3 (4.5-11.0)
[2017-01-15 02:07] LABS: ALBUMIN 2.6 G/DL (3.5-5.0); ALBUMIN/GLOBULIN RATIO 0.9 RATIO (1.1-2.2); ALKALINE PHOSPHATASE 71 U/L (38-126); ALT (SGPT) 25 U/L (9-52); ANION GAP 12 MEQ/L (5-15); AST (SGOT) 25 U/L (14-36); BUN/CREATININE RATIO 26 RATIO (6-26); CALCIUM 8.1 MG/DL (8.4-10.2); CHLORIDE 107 MEQ/L (98-107); CO2 - CARBON DIOXIDE 22 MEQ/L (22-30); CREATININE 1.1 MG/DL (0.7-1.2); GLOMERULAR FILTRATION RATE 52; GLUCOSE 104 MG/DL (65-110); LIPASE 113 U/L (23-300); POTASSIUM 3.8 MEQ/L (3.6-5); SODIUM 141 MEQ/L (134-144); TOTAL PROTEIN 5.6 G/DL (6.3-8.2)
--- NOTE | 2017-01-15 02:08 | NUR ---
REPORT REPORT TO BARBARA ROUSE. CARES RELEASED.
[2017-01-15 02:09] LABS: ANISOCYTOSIS 1+; EOSINOPHILS # (MANUAL) 0.1 T/MM3 (0-0.5); LYMPHOCYTES # (MANUAL) 0.4 T/MM3 (1-4.8); MONOCYTES # (MANUAL) 0.1 T/MM3 (0-0.8); NEUTROPHILS #(MANUAL)-ABSOLUTE 1.1 T/MM3 (1.8-7.7); POIKILOCYTOSIS 1+; TOTAL CELLS COUNTED 50 %
--- NOTE | 2017-01-15 02:10 | NUR ---
CT PT. TO CT PER CART.
--- NOTE | 2017-01-15 02:26 | NUR ---
CT PT. RETURNS FROM CT.
--- NOTE | 2017-01-15 03:06 | NUR ---
MS MS GIVEN IV DUE TO REPORT HAVE PAIN RETURNING. RATES IT A 7 AT THIS TIME.
[2017-01-15] MEDS ORDERED: ONDA4TAB7 PO (03:29)
[2017-01-15] MEDS ORDERED: CEFP200T14 PO (03:29)
[2017-01-15] MEDS ORDERED: HYDR-4246 PO (03:29)
[2017-01-15] MEDS ORDERED: CEFPODOXIME 200 MG TABLET PO ONE (03:30)
[2017-01-15] MEDS ORDERED: ONDANSETRON ODT 4mg #3 (PrePack) SENT HOME ONE (03:30)
[2017-01-15] MEDS ORDERED: HYDROCODONE/APAP 5/325 (PrePack) SENT HOME ONE (03:30)
--- NOTE | 2017-01-15 03:42 | NUR ---
ALEXANDRE PT. REPORTS SHE IS HAVING MORE NAUSEA NOW. ZOFRAN GIVEN IV.
--- NOTE | 2017-01-15 04:11 | NUR ---
DISMISSAL NOTE DISMISSAL INSTRUCTIONS GIVEN TO PT. RX. FOR VANTIN, ZOFRAN AND NORCO GIVEN TO PT. PT. SENT HOME WITH A PREPACK OF ALEXANDRE AND NORCO. PT. QUESTIONS HOW BIG AND AREA OF BLEEDING IS. INFORMED HER THAT DR. ANDREWS SAID THAT IS HARD TO EXPLAIN BUT THAT THERE IS NO ACTIVE BLEEDING AT THIS TIME BUT THE AREA OF BLEEDING IS WORSE THEN THE LAST TIME THE TAPPED HER. PT. TAKEN TO VEHICLE PER WHEELCHAIR.
[2017-01-15 06:32] VITALS: BP 93/58; PULSE 76; RESP 18; O2SAT 100
--- NOTE | 2017-01-15 11:12 | DI ---
Indication: ITS.REASON: left abd wall pain/swelling after paracentesis Procedure: CT ABD/PELVIS W/CONTRAST ONLY: Encounter: Initial Comparison: 12/13/2016 Technique: Axial CT images were performed through the abdomen and pelvis after the administration of intravenous contrast. Coronal and sagittal reformatted images were also obtained. Automated Exposure Control and Iterative Reconstruction dose reducing techniques were utilized. Contrast: Omnipaque 300 100 mL Findings: Lower lungs: Basilar dependent subsegmental atelectasis. The visualized heart is normal in size without pericardial effusion. Abdomen: The liver demonstrates a diffusely nodular contour and shrunken appearance consistent with cirrhosis but enhances homogeneously without focal mass. The gallbladder is distended and appears normal. No biliary ductal dilatation. The pancreas enhances homogeneously. The spleen is enlarged but normal in enhancement. The adrenal glands are within normal limits. The kidneys enhance symmetrically and appear normal. The ureters are normal in course and caliber. The abdominal aorta is normal in course and caliber with aortoiliac atherosclerotic calcifications. The mesenteric arterial and venous structures appear patent. Redemonstration of prominent enlargement of the portal and splenic veins with portosystemic varices. The stomach is partially distended and appears normal. Small bowel loops are normal in caliber without evidence of obstruction. The colon appears normal. The appendix is not seen with certainty. Moderate abdominal ascites. No intra-abdominal free air. Pelvis: The bladder appears grossly normal. Moderate pelvic free fluid. No lymphadenopathy. Osseous structures and soft tissues: No acute osseous abnormality. Degenerative spondylosis of the visualized spine. Marked asymmetric enlargement of the left rectus abdominis musculature with more focal enlargement and focal hyperattenuation seen within the left anterior abdominal wall on image 54 likely related to hematoma. Impression: 1. Left rectus abdominis musculature hematoma and asymmetric enlargement. 2. Hepatic cirrhosis with findings of portal venous hypertension and prominent abdominal ascites. The above report concurs with the preliminary report provided by [employer] at 3:12 AM. .
== END 2017-01-15 04:15 | disposition home or self-care (01) ==
LOC: ED 00:23
DX: S30.1XXA Contusion of abdominal wall, initial encounter (principal); X58.XXXA Exposure to other specified factors, initial encounter; Y93.9 Activity, unspecified; Y92.009 Unspecified place in unspecified non-institutional (private) residence as the place of occurrence of the external cause; Y99.8 Other external cause status
CPT/HCPCS: 74177; 80053; 83690; 85025; 96374; 96375; 96376; 99284; J2405; J7050; Q9967

== ENCOUNTER 2017-01-16 08:19 | Outpatient (CLI) | payer OTHER ==
[2017-01-16] VITALS (18 sets, daily range): BP systolic 76–105; BP diastolic 38–64; PULSE 69–94; RESP 16–26; TEMP 97.7–98.1; O2SAT 92–100; Ht 162.6 cm; Wt 80.6 kg
[~2017-01-16] VITALS: Ht 162.6 cm; Wt 80.6 kg
[~2017-01-16 08:19] MED LIST changes: +CEFP200T14 PO; +HYDR-4246 PO; +ONDA4TAB7 PO
--- NOTE | 2017-01-16 08:28 | NUR ---
ARRIVED TO FLOOR PT ARRIVED TO THE FLOOR AT 0828, AMBULATORY. PT ALERT AND ORIENTED X3, FAMILY PRESENT. BEING ADMISSION PROCESS.
[2017-01-16] MEDS ORDERED: NORMAL SALINE 50 ML IV ONE (09:14)
[2017-01-16] MEDS ORDERED: ALBUMIN HUMAN 25% 100 ML IV ONE (09:14)
--- NOTE | 2017-01-16 10:30 | NUR ---
OFF UNIT PATIENT OFF UNIT AT THIS TIME. PATIENT LEFT VIA WHEELCHAIR AND US STAFF. PATIENT IS ALERT AND ORIENTED X3.
[2017-01-16 10:40] LABS: INR 1.51 (0.76-1.04); PROTHROMBIN TIME 16.5 SEC (9.31-12.49)
[2017-01-16] MEDS ORDERED: ALBUMIN HUMAN 25% 12.5gm 50ml IV ONE (11:30)
--- NOTE | 2017-01-16 12:00 | NUR ---
D/C ALBUMIN DR HARKINS GAVE VO TO D/C ALBUMIN SINCE LESS THAN 5L OF FLUID WAS DRAINED. PATIENT RECEIVED 70MLS OF ALBUMIN AT THIS TIME.
--- NOTE | 2017-01-16 12:06 | NUR ---
DANITA SAMAYOA IN TO VISIT PATIENT, SHE IS NOT IN THE ROOM AT THIS TIME. NO FAMILY IS PRESENT. CM CONTACT INFORMATION LEFT.
--- NOTE | 2017-01-16 12:19 | NUR ---
BACK TO UNIT PATIENT IS BACK TO UNIT AT THIS TIME. PATIENT AMBULATED FROM WHEELCHAIR TO BED. PATIENT VITALS ARE STABLE. WILL CONTINUE TO MONITOR.
--- NOTE | 2017-01-16 13:24 | NUR ---
CM DANITA IN TO VISIT PATIENT, SHE IS BACK IN THE ROOM BUT SLEEPING.
--- NOTE | 2017-01-16 14:07 | DI ---
Indication:ITS.REASON: K74.60 CIRRHOSIS OF LIVER Procedure:US GUIDE PARACENTESIS, INITIAL PARACENTESIS: The procedure including the benefits, risks, and alternatives were explained in detail to the patient. All of her questions were answered. She stated that they understood and wished to proceed. Informed consent was obtained. A preprocedural timeout was performed to confirm the correct patient and procedure. Using sterile technique, local xylocaine anesthesia, and sonographic guidance throughout, a paracentesis is done from a right lateral approach. 4000 ml of serosanguineous fluid was taken off without complication. Following this, the patient was taken back to her recovery room for continued monitoring. Impression: Successful paracentesis performed with 4 L of fluid removed. Abdias Duncan RPA/CATARINA performed this under my personal supervision. .
--- NOTE | 2017-01-16 14:09 | NUR ---
CM CM IN TO VISIT PATIENT, SHE IS A&O. NO FAMILY IS PRESENT IN ROOM. PATIENT PLANS TO DISCHARGE HOME, DENIES NEEDS. CM CONTACT INFORMATION PROVIDED. Addendum: 01/16/17 at 1409 by JONATHAN HAILE RN Amended: Links added.
[2017-01-16] MEDS ORDERED: ACETAMINOPHEN 325 MG TABLET PO PRN (16:30)
--- NOTE | 2017-01-16 17:05 | NUR ---
DISCHARGE PATIENT IS ALERT AND ORIENTED X3. PATIENT VITALS ARE STABLE AND PATIENT IS ON ROOM AIR. PATIENT DENIES CP, NAUSEA, AND SOA. PATIENT DISCHARGE INSTRUCTIONS INCLUDE: SIGNS AND SYMPTOMS OF INFECTION, CONTINUED MEDICATIONS, REASONS TO CALL DOCTOR AND/OR SEEK IMMEDIATE CARE, ACTIVITY, DIET, AND DI FOR ABDOMINAL PARACENTESIS. PERSONAL BELONGINGS RETURNED AND IV DISCONTINUED. PATIENT VIA VIA WHEELCHAIR AND THIS NURSE FROM THE FRONT ENTRANCE. PATIENT TRANSPORTED HOME FOR SELF CARE WITH DAUGHTER.
== END 2017-01-16 17:05 | disposition home or self-care (01) ==
LOC: SRG 08:19 → IMA.BED 08:19
PROVIDERS: ATTEND Radiology Diagnostic Radiology
DX: K74.60 Unspecified cirrhosis of liver (principal)
CPT/HCPCS: 36415; 49083; 85610; 99406; J7050; P9047

== ENCOUNTER 2017-02-06 07:53 | Outpatient (CLI) | payer OTHER ==
[~2017-02-06] VITALS: Ht 162.6 cm; Wt 75.6 kg
[2017-02-06] VITALS (13 sets, daily range): BP systolic 85–117; BP diastolic 54–64; PULSE 70–82; RESP 14–20; TEMP 97.7; O2SAT 97–100; Ht 162.6 cm; Wt 75.6 kg
--- NOTE | 2017-02-06 07:59 | NUR ---
Admit Pt admitted to room 116 for procedure. Pt in stable condition, ambulatory and denies SOA. Will continue to monitor.
[2017-02-06] MEDS ORDERED: CHOL20002 PO (08:29)
[2017-02-06] MEDS ORDERED: CHOL500051 PO (08:29)
[2017-02-06] MEDS ORDERED: ALBUMIN HUMAN 25% 50 ML IV ONE ×2 (09:00→12:00)
[2017-02-06] MEDS: ALBUMIN HUMAN 25% 200 ML IV ONE ×2 (09:00→09:03)
[2017-02-06 09:08] LABS: INR 1.44 (0.76-1.04); PROTHROMBIN TIME 15.7 SEC (9.31-12.49)
--- NOTE | 2017-02-06 09:31 | NUR ---
CM CM IN TO VISIT PATIENT, SHE IS A&O. NO FAMILY IS PRESENT. PATIENT PLANS TO DISCHARGE HOME, DENIES NEEDS. CM CONTACT INFORMATION PROVIDED. Addendum: 02/06/17 at 0932 by JONATHAN HAILE RN Amended: Links added.
--- NOTE | 2017-02-06 09:40 | NUR ---
Off Unit Pt off unit at this time for procedure.
[2017-02-06] MEDS ORDERED: NORMAL SALINE 50 ML IV ONE (10:03)
--- NOTE | 2017-02-06 11:15 | NUR ---
Return Pt returned to floor at this time. Denies SOA/difficulty breathing, lightheaded or dizzy.
[2017-02-06] MEDS ORDERED: ALBUMIN HUMAN 25% 12.5gm 50ml IV ONE (12:02)
--- NOTE | 2017-02-06 13:26 | NUR ---
Discharge Pt discharged home to care of family. Discharge instructions reviewed and hard copies given, including s/sx to report, activity guidelines, follow up appointment, diet, incision care and medication. Pt verbalized understanding. Pt denies SOA/difficulty breathing, CP, N/V. Pt states feeling fine. Pt wheeled to front entrance accompanied by nursing staff. Will continue to monitor.
--- NOTE | 2017-02-06 13:40 | DI ---
Indication:ITS.REASON ascites Procedure:US GUIDE PARACENTESIS, SUBSEQ PARACENTESIS: The procedure including the benefits, risks, and alternatives were explained in detail to the patient. All of her questions were answered. She stated that they understood and wished to proceed. Informed consent was obtained. A preprocedural timeout was performed to confirm the correct patient and procedure. Using sterile technique, local xylocaine anesthesia, and sonographic guidance throughout, a paracentesis is done from a right lateral approach. 6300 ml of straw colored fluid was taken off without complication. Following this, the patient was taken back to her recovery room to finish her albumin infusion. Impression: Successful paracentesis performed with 6300 mL of fluid removed. Abdias Duncan RPA/CATARINA performed this under my personal supervision. .
== END 2017-02-06 13:26 | disposition home or self-care (01) ==
LOC: SRG 07:53 → IMA.BED 07:53
PROVIDERS: ATTEND Radiology Diagnostic Radiology
DX: K74.60 Unspecified cirrhosis of liver (principal)
CPT/HCPCS: 49083; 85049; 85610; J7050; P9047

== ENCOUNTER 2017-02-13 08:19 | Outpatient (CLI) | payer OTHER ==
[~2017-02-13] VITALS: Ht 162.6 cm; Wt 77.8 kg
[2017-02-13] VITALS (22 sets, daily range): BP systolic 88–129; BP diastolic 55–87; PULSE 73–88; RESP 14–25; TEMP 96.2–97.7; O2SAT 98–100; Ht 162.6 cm; Wt 77.8 kg
[~2017-02-13 08:19] MED LIST changes: -CEFP200T14 PO; +CHOL20002 PO; +CHOL500051 PO
--- NOTE | 2017-02-13 08:29 | NUR ---
ARRIVAL AMBULATORY TO ROOM 134. ALERT AND ORIENTED X3. PRINCERN NOTIFIED OF PATIENT'S ARRIVAL.
[2017-02-13] MEDS ORDERED: MAGN400T6 PO (09:01)
[2017-02-13] MEDS ORDERED: CHOL500050 PO (09:01)
[2017-02-13] MEDS ORDERED: ALBUMIN HUMAN 25% 50 ML IV ONE ×2 (09:30→13:45)
[2017-02-13] MEDS ORDERED: NORMAL SALINE 50 ML IV ONE (09:51)
[2017-02-13 09:55] LABS: INR 1.36 (0.76-1.04); PROTHROMBIN TIME 14.8 SEC (9.31-12.49)
--- NOTE | 2017-02-13 10:14 | NUR ---
CM CM IN TO VISIT PATIENT, SHE IS A&O. NO FAMILY IS IN ROOM. PATIENT PLANS TO DISCHARGE HOME, DENIES DISCHARGE NEEDS. CM CONTACT INFORMATION PROVIDED. Addendum: 02/13/17 at 1015 by JONATHAN HAILE RN Amended: Links added.
--- NOTE | 2017-02-13 10:25 | NUR ---
URINARY RETENTION/GENITOURINARY CONCERNS Due to patient's symptoms of reduced urine output and description of 'dribbling' over the past several days, 20 ml urine output for one void this morning, description of bladder scans with 200 ml of urine during her last hospitalization, and discomfort over her kidneys for several days, and the feeling that "she always has the urge to go", a bladder scan was performed at bedside prior to paracentesis. Result read out ">999 mls". This RN attempted to contact the radiologist to whom she is admitted without success. Instrument Technician Helper who is here to transport patient to radiology for procedure verbalizes that she will discuss this with the physician. This RN has previously discussed the findings (prior to the bladder scan result) with the admitting physician, and he requested that we contact the patient's primary care physician. The [facility] was contacted and a message left with the debt recovery officer for Dr Dionicio Dumont regarding these findings (including the bladder scan result). The debt recovery officer states that she will have the nurse contact me as soon as possible. Awaiting call.
[2017-02-13] MEDS ORDERED: NORMAL SALINE 50 ML IV PRN (10:30)
--- NOTE | 2017-02-13 10:30 | NUR ---
TO PARACENTESIS Patient transported to radiology for paracentesis by wheelchair. Patient is alert, oriented, and has signed her consent.
[2017-02-13] MEDS ORDERED: ALBUMIN HUMAN 25% 150 ML IV ONE (10:44)
--- NOTE | 2017-02-13 11:00 | NUR ---
CASE MANAGEMENT Received a call back from [facility] and spoke with BRABARA Knox. Dr Adalberto Pool is supervisor metal furniture assembly for patient's resident Dr Dionicio Daniel. The nurse has received orders from Dr Pool for a UA and to have the patient seen at [facility] during this visit. Case Management was contacted, and at their recommendation in response to this order, a consult for Dr Page was placed. I have paged Dr Page and am awaiting a response. I have contacted Dr Grey and discussed these orders from [place] with him, and he states that he would like to proceed with all of the above.
--- NOTE | 2017-02-13 12:05 | NUR ---
RETURN Returns from radiology after paracentesis with 7.6 liters of fluid removed. Report was received from Micaela Tong RN. Still reports costovertebral angle discomfort especially on the left side. She does mention "although, it doesn't hurt quite as bad as before the drainage". Situation was discussed with Micaela and correctional casework specialist and after a look at the bladder after the paracentesis, it does appear that the volume in the bladder is less than previously scanned (although the probe was situated over the low pelvic area, it may have picked up fluid from the abdomen). Order for hospitalist consult placed per the radiologist. Aleena ROCHA will be notified of patient's return. VSS.
[2017-02-13 12:57] LABS: BLOOD, URINE 1+ (NEGATIVE); LEUKOCYTE ESTERASE ,URINE NEGATIVE (NEGATIVE); NITRITE,URINE NEGATIVE (NEGATIVE)
[2017-02-13 12:59] LABS: COLOR,URINE DK YELLOW (YELLOW)
[2017-02-13 13:08] LABS: BACTERIA,URINE TRACE (NEGATIVE); SQUAMOUS EPITHELIAL CELL,UR 0-5; WBC,URINE 0-1 /HPF (0-5)
[2017-02-13 13:09] LABS: CALCIUM OXALATE CRYSTALS,UR FEW; MUCUS,URINE PRESENT
--- NOTE | 2017-02-13 13:16 | CONSPD ---
TOMMY ROMERO V SALES PLANNING ANALYST 02/13/17 1306: Consultation Info Date DATE: 02/13/17 TIME: 12:52 Date of Consultation: February 13, 2017 Attending Physician: Camilo Reason for Consultation: Urinary retention HPI - Adult Date DATE: 02/13/17 TIME: 12:52 General Chief Complaint: Urinary retention with frequency History of Present Illness Patient is a 56-year-old female was admitted under the radiologist for a scheduled outpatient ultrasound-guided paracentesis for chronic liver cirrhosis with ascites. Prior to her procedure. She told nursing staff that she was having urinary frequency with decreased output over the last several days. Nursing attempted to do a bladder scan which read greater than 1 liter. Patient then went to her scheduled paracentesis in which over 6 liters of ascites fluid was drained from her abdomen. Bladder was evaluated during this procedure, and it was felt that bladder retention was likely ascites fluid rather than urine in the bladder. Upon returning to room postprocedure. Patient is able to void a small amount and urinalysis is ordered. Patient has had cirrhosis of the liver since 1995 and has underwent numerous paracentesis for drainage of ascites. In January 2017. She was found to have a left rectus abdominous hematoma. She subsequently spent several weeks, hospitalized at [place] in which time she developed C. difficile. She is under the care of Dr Dumont who is GI specialist at . Past Medical History Past Medical History Liver cirrhosis Recent hospitalization with C. difficile Chronic thrombocytopenia History of MRSA cellulitis Cataracts Depression. Multiple personalities disorder. Hypothyroidism. Chronic back pain. Chronic constipation. GERD Migraines. History of benign parotid tumor. History of seizures Former tobacco dependence Surgical History Patient's Surgical History: Hysterectomy-1978 Removal of benign parotid tumor. Colonoscopy, 2004, 2017. Multiple oral surgeries Current Medications Home Meds Active Scripts Hydrocodone/Acetaminophen (Como 5-325 Tablet) 5-325 Tablet, 1-2 TAB PO QID Y for PAIN, #30 Prov:TANNER ANDREWS MD 01/15/17 Ondansetron (Zofran Odt) 4 Mg Tab.rapdis, 4 MG PO Q6HR, #30 TAB Oral disintegrating tablet Prov:TANNER ANDREWS MD 01/15/17 Reported Medications Magnesium Oxide (Magnesium Oxide) 400 Mg Tablet, 1 TAB PO DAILY, #30 TAB 5 Refills 02/13/17 Cholecalciferol (Vitamin D3) (Vitamin D3) 50,000 Unit Capsule, 1 CAP PO 1 WEEK 02/13/17 Cholecalciferol (Vitamin D3) (Vitamin D) 2,000 Unit Capsule, 2000 UNIT PO DAILY 02/06/17 Spironolactone (Spironolactone) 100 Mg Tablet, 2 TAB PO DAILY, TAB 01/02/17 Hydroxyzine Pamoate (Hydroxyzine Pamoate) 25 Mg Capsule, 1 CAP PO TID Y for RASH , #90 CAP 11/14/16 Furosemide (Lasix) 20 Mg Tablet, 4 TAB PO DAILY, TAB 10/11/16 Lactulose (Lactulose) 10 Gm/15 Ml Solution, 45 ML PO DAILY, #1800 ML 10 Refills 10/10/16 Albuterol Sulfate (Proair HFA 90 mcg/actuation) 8.5 Gm Hfa.aer.ad, 1-2 PUFF INH Q4H Y for ASTHMA, INHALER 10/10/16 Levothyroxine Sodium (Levothyroxine Sodium) 50 Mcg Tablet, 50 MCG PO ACB 09/18/16 Allergies: Coded Allergies: alcohol (Verified Allergy, Severe, RASH, 02/13/17) REPORTS NUTRITIONAL ALCOHOL ALLERGY. (MOUTHWASH, VANILLA EXTRACT) Penicillins (Verified Allergy, Intermediate, TROUBLE BREATHING, 02/13/17) Hives, trouble breathing, rash codeine (Verified Allergy, Intermediate, RASH, 02/13/17) toe puller increased difficult breathing morphine (Verified Allergy, Intermediate, NAUSEA & VOMITING, 02/13/17) metoclopramide (Verified Allergy, Unknown, UNKNOWN, 02/13/17) tetracycline (Verified Allergy, Unknown, UNKNOWN, 02/13/17) Uncoded Allergies: ETOH (Allergy, Unknown, UNKNOWN, 01/12/08) Family History Family History: Mother-alive and well. Other than mitral valve stenosis related to rheumatoid fever Father- at age 54 from throat cancer Social History Smoking Status: Former smoker Substance Use Type: does not use Substance last used: prior to arrival Alcohol Intake: none Marital Status: Sexuality: male partner Advance Directives: No DPOA for Healthcare Only Social History Comments Primary care provider- Dr. [place] GI specialist- Dr Dionicio Dumont at Review of Systems GI Upper Abdomen: abdominal swelling Comments Lower abdominal ecchymosis General: see HPI, urgency Musculoskeletal General: pain (lumbar back pain) All Other Systems All Other Systems: Reviewed (remainder of 10-point ROS Neg.) Physical Exam General General Nourishment: well nourished, well developed Vital Signs Vital Signs Date Time Temp Pulse Resp B/P Pulse Ox O2 Delivery O2 Flow Rate FiO2 02/13/17 12:25 88 18 119/87 99 Room Air 02/13/17 12:10 97.7 Height (Feet): 5 Height (Inches): 4.00 Eyes Brief: FOUND: EOMI Neck Brief: FOUND: midline, NOT FOUND: adenopathy, carotid bruits, tracheal deviation Respiratory Brief: FOUND: clear all reyes, equal bilaterally, NOT FOUND: wheezes Cardiovascular (brief) Cardiac Brief: FOUND: regular rate, regular rhythm, NOT FOUND: murmur, pedal edema Abdomen (brief) Abdominal Brief: FOUND: distended, soft, NOT FOUND: BS normo active x4 Comments Lower abdominal ecchymosis, which is chronic, related to recent abdominal hematoma Musculoskeletal (brief) Musculoskeletal Brief: FOUND: tenderness (lumbar back- Acute versus chronic) Integumentary (brief) Integumentary Brief: FOUND: dry, pink, warm Neurologic (brief) Neurological Brief: FOUND: cranial 2-12 intact Neurologic RN Documented GCS Eye Opening: Verbal: Motor: Total: Psychiatric (brief) FOUND: alert, attentive, normal affect, oriented Laboratory Laboratory Tests Test 02/13/17 09:41 Platelet Count 32T/MM3 Prothromb Time International Ratio 1.36 Impression/Recommendation Problems: (1) Liver failure Status: Acute Qualifiers: Liver failure chronicity: acute (2) Ascites Status: Acute (3) Urinary frequency Status: Acute (4) Thrombocytopenia Status: Chronic Assessment & Plan: Acute versus chronic, platelets today 32 (5) GERD (gastroesophageal reflux disease) Status: Chronic (6) Chronic back pain Status: Chronic (7) Migraines Status: Chronic (8) Multiple personality disorder Status: Chronic (9) Hypothyroidism Status: Chronic (10) Depression (11) History of seizures Status: Resolved (12) History of GI bleed Status: Resolved Recommendation Ultrasound-guided paracentesis has completed and patient has tolerated this well. She is now eating lunch. Have asked nursing staff to obtain a urinalysis to rule out infection. She is able to void, although it is a small amount. Urinalysis reviewed showing trace protein, trace ketones, 1+ blood, trace bacteria, otherwise unremarkable. Patient is afebrile. No evidence of acute infectious or sepsis process. Recommended that nursing staff. Straight catheter patient. If they feel that she is having retention, rather than utilizing bladder scanner given amount of ascites. Vital signs remain normal. Thrombocytopenia appears to be chronic. Patient can likely follow-up with her primary care provider in the outpatient setting if urinary frequency continues. BRANDIN PAGE MD 02/13/17 1510: Past Medical History Current Medications Home Meds Active Scripts Hydrocodone/Acetaminophen (Como 5-325 Tablet) 5-325 Tablet, 1-2 TAB PO QID Y for PAIN, #30 Prov:TANNER ANDREWS MD 01/15/17 Ondansetron (Zofran Odt) 4 Mg Tab.rapdis, 4 MG PO Q6HR, #30 TAB Oral disintegrating tablet Prov:TANNER ANDREWS MD 01/15/17 Reported Medications Magnesium Oxide (Magnesium Oxide) 400 Mg Tablet, 1 TAB PO DAILY, #30 TAB 5 Refills 02/13/17 Cholecalciferol (Vitamin D3) (Vitamin D3) 50,000 Unit Capsule, 1 CAP PO 1 WEEK 02/13/17 Cholecalciferol (Vitamin D3) (Vitamin D) 2,000 Unit Capsule, 2000 UNIT PO DAILY 02/06/17 Spironolactone (Spironolactone) 100 Mg Tablet, 2 TAB PO DAILY, TAB 01/02/17 Hydroxyzine Pamoate (Hydroxyzine Pamoate) 25 Mg Capsule, 1 CAP PO TID Y for RASH , #90 CAP 11/14/16 Furosemide (Lasix) 20 Mg Tablet, 4 TAB PO DAILY, TAB 10/11/16 Lactulose (Lactulose) 10 Gm/15 Ml Solution, 45 ML PO DAILY, #1800 ML 10 Refills 10/10/16 Albuterol Sulfate (Proair HFA 90 mcg/actuation) 8.5 Gm Hfa.aer.ad, 1-2 PUFF INH Q4H Y for ASTHMA, INHALER 10/10/16 Levothyroxine Sodium (Levothyroxine Sodium) 50 Mcg Tablet, 50 MCG PO ACB 09/18/16 Allergies: Coded Allergies: alcohol (Verified Allergy, Severe, RASH, 02/13/17) REPORTS NUTRITIONAL ALCOHOL ALLERGY. (MOUTHWASH, VANILLA EXTRACT) Penicillins (Verified Allergy, Intermediate, TROUBLE BREATHING, 02/13/17) Hives, trouble breathing, rash codeine (Verified Allergy, Intermediate, RASH, 02/13/17) toe puller increased difficult breathing morphine (Verified Allergy, Intermediate, NAUSEA & VOMITING, 02/13/17) metoclopramide (Verified Allergy, Unknown, UNKNOWN, 02/13/17) tetracycline (Verified Allergy, Unknown, UNKNOWN, 02/13/17) Uncoded Allergies: ETOH (Allergy, Unknown, UNKNOWN, 01/12/08) Impression/Recommendation Impression 02/13/2017-I reviewed this chart, the patient history, and the SALES PLANNING ANALYST's/PA's documented findings as above. We discussed and formulated the assessment and plan as above with the additions below.-Dr. Page The patient was seen this afternoon after her paracentesis. She states that she' s feeling better. Her back pain is now gone but is better. She is urinating small amounts. Urinalysis did not show any signs of infection. She does not have urinary retention. Previous bladder scan that was done prior to paracentesis was likely fall secondary to massive ascites. Otherwise, the patient is feeling well. She has no complaints. She is breathing okay. She feels ready to go home whenever cleared by the attending. Vital signs are stable On exam the patient is alert and oriented and in no acute distress. HEENT reveals sclerae to be anicteric and oropharynx is moist. Neck is supple. Chest is clear to auscultation. Cardiovascular reveals a regular rate and rhythm with a 2/6 systolic murmur. Abdomen is soft and nondistended. She does have a firm area in the left mid abdomen from previous hematoma. I'll sounds are normal. Extremities are free of edema. Skin is warm and dry and without rashes. Laboratory today shows platelet count of 32. INR 1.36. And UA with trace protein , trace ketones, +1 blood, trace bacteria. 0-1 white cells. Negative leukocyte esterase. Negative nitrite. Impression Currently no sign of urinary tract infection. No sign of urinary retention. Other chronic medical issues appear to be stable and she has no other acute symptoms. Plan for discharge when okay with attending. Recommend she follow-up with her primary care physician if she has worsening of back pain or any other concerns. She did ask me whether I thought her Lasix and spironolactone doses were appropriate for her. I did ask her to bring that up with either her primary care physician or her hall cleaner since they have cared for her medical issues for a long time. She agreed that that would be a good idea. TOMMY ROMERO APRN February 13, 2017 13:06 BRANDIN PAGE MD February 13, 2017 15:10
--- NOTE | 2017-02-13 14:12 | NUR ---
STATUS Fourth vial of Albumin is complete (over one hour) and NS infuses to ensure entire dose of Albumin is received. Patient has been dozing in bed, rouses to verbal stimuli. Denies cramping. States that costovertebral angle discomfort is somewhat better. Vitals- relatively stable with SBP >90. When RN read vitals to patient she stated "ok, good" and indicated that the 90's weren't unusual for her. She has not voided since the UA was collected. She has had a total of about 30 ml output divided between two voids. This does not count her unmeasured void when she first arrived to the room but states that this was very little output. I have discussed the UA results and the output with Aleena ROCHA. Awaiting Dr Page's visit.
[2017-02-13] MEDS ORDERED: ALBUMIN HUMAN 25% 12.5gm 50ml IV ONE (14:25)
--- NOTE | 2017-02-13 15:16 | NUR ---
HOSPITALIST SERVICE, RADIOLOGY ORDER FOR DISCHARGE Dr Page has visited patient and reviewed lab. States that we may discharge pt if ok with radiology. Dr Grey contacted and discussed status. Order given to discharge.
--- NOTE | 2017-02-13 15:36 | NUR ---
DISCHARGE Patient ambulated to front entrance of the hospital with standby assistance from nursing upon discharge, to vehicle to be transported by her daughter. Tolerated the walk without lightheadedness, dizziness, or unsteadiness. Prior to discharge the IV was discontinued and the discharge teaching packet discussed. Patient is aware that should she continue to have low urine outputs that she will need to seek medical care with her PCP. She verbalizes that she is so relieved to know that she does not have a UTI, that she appreciated Dr Page's visit.
--- NOTE | 2017-02-13 17:17 | DI ---
Indication:ITS.REASON Procedure:US GUIDE PARACENTESIS, SUBSEQ PARACENTESIS: The procedure including the benefits, risks, and alternatives were explained in detail to the patient. All of her questions were answered. She stated that they understood and wished to proceed. Informed consent was obtained. A preprocedural timeout was performed to confirm the correct patient and procedure. Using sterile technique, local xylocaine anesthesia, and sonographic guidance throughout, a paracentesis is done from a right lateral approach. 6.7 L of straw colored fluid was taken off without complication. Following this, the patient was taken back to her recovery room to finish her albumin infusion. Impression: Successful paracentesis with 6.7 L of fluid removed. Abdias Duncan RPA/CATARINA performed this under my personal supervision. .
== END 2017-02-13 15:36 | disposition home or self-care (01) ==
LOC: IMA.BED 08:19 → SRG 08:20 → IMA.BED 15:36
PROVIDERS: ATTEND Radiology Diagnostic Radiology
DX: K74.60 Unspecified cirrhosis of liver (principal)
CPT/HCPCS: 36415; 49083; 81001; 85049; 85610; J7050; P9047

== ENCOUNTER 2017-02-20 08:25 | Outpatient (CLI) | payer OTHER ==
[~2017-02-20] VITALS: Ht 162.6 cm; Wt 74.6 kg
[2017-02-20] VITALS (12 sets, daily range): BP systolic 90–114; BP diastolic 53–67; PULSE 71–87; RESP 18–20; TEMP 96.4–96.8; O2SAT 97–100; Ht 162.6 cm; Wt 74.6 kg
[~2017-02-20 08:25] MED LIST changes: +CHOL500050 PO; -CHOL500051 PO; +MAGN400T6 PO
--- NOTE | 2017-02-20 08:33 | NUR ---
Admit Pt admitted at this time via ambulatory status. VS stable on RA. Consent signed. Side rails up X2, call light w/in reach, bed alarm on.
[2017-02-20] MEDS ORDERED: ACETAMINOPHEN 325 MG TABLET PO PRN (09:15)
--- NOTE | 2017-02-20 09:30 | NUR ---
CM CM IN TO VISIT PATIENT, SHE IS A&O. NO FAMILY IS PRESENT. PATIENT WILL DISCHARGE HOME, DENIES NEEDS. CM CONTACT INFORMATION GIVEN. BERYLE SCORE WAS 7, NO FURTHER FOLLOW UP IS NEEDED AT THIS TIME. Addendum: 02/20/17 at 0931 by JONATHAN HAILE RN Amended: Links added.
[2017-02-20] MEDS ORDERED: ALBUMIN HUMAN 25% 50 ML IV ONE ×4 (10:00→13:00)
--- NOTE | 2017-02-20 10:05 | NUR ---
TO RADIOLOGY PATIENT LEFT UNIT TO RADIOLOGY AT THIS TIME VIA WHEELCHAIR AND RADIOLOGY STAFF. CHART, CONSENT, AND BP CUFF SENT WITH PATIENT. ROOM AIR AT THIS TIME. PT DOES NOT APPEAR TO BE IN ACUTE DISTRESS. WILL CONTINUE TO MONITOR.
--- NOTE | 2017-02-20 11:17 | NUR ---
FROM RADIOLOGY PATIENT ARRIVED FROM RADIOLOGY TO ROOM 121 AT THIS TIME VIA WHEELCHAIR AND RADIOLOGY STAFF. ROOM AIR. POST OP VITALS BEGAN. FIRST SET STABLE. PT SLIGHTLY HYPOTENSIVE. THIS IS PATIENT'S BASELINE. DENIES N/V OR PAIN. DRESSING CLEAN, DRY, INTACT. WILL CONTINUE TO MONITOR.
--- NOTE | 2017-02-20 12:43 | DI ---
Indication:ITS.REASON ascites Procedure:US GUIDE PARACENTESIS, SUBSEQ PARACENTESIS: The procedure including the benefits, risks, and alternatives were explained in detail to the patient. All of her questions were answered. She stated that they understood and wished to proceed. Informed consent was obtained. A preprocedural timeout was performed to confirm the correct patient and procedure. Using sterile technique, local xylocaine anesthesia, and sonographic guidance throughout, a paracentesis is done from a right lateral approach. 5400 ml of serosanguineous fluid was taken off without complication. Following this, the patient was taken back to her recovery room to finish her albumin infusion. Impression: Successful paracentesis performed with 5.4 L of fluid removed. Abdias Duncan RPA/CATARINA performed this under my personal supervision. .
--- NOTE | 2017-02-20 12:44 | NUR ---
DISMISSAL PATIENT DISMISSED TO HOME FOR SELF-CARE TO THE MAIN HOSPITAL ENTRANCE. PT AMBULATORY. PT STABLE AND ON ROOM AIR AT TIME OF DISCHARGE. DRESSING CLEAN, DRY, INTACT. DENIES PAIN. 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 D/C INSTRUCTIONS REVIEWED PRIOR TO D/C. TOPICS DISCUSSED INCLUDED: MEDICATIONS, S/S TO REPORT, INCISION CARE, S/S OF INFECTION. BOTH AND PT VERBALIZED UNDERSTANDING. IV CATHETER REMOVED BY TO D/C. ARM BAND REMOVED AND PLACED IN SHRED.
== END 2017-02-20 12:44 | disposition home or self-care (01) ==
LOC: IMA.BED 08:25 → SRG 08:27 → IMA.BED 12:44
PROVIDERS: ATTEND Radiology Diagnostic Radiology
DX: K74.60 Unspecified cirrhosis of liver (principal); R18.8 Other ascites
CPT/HCPCS: 49083; P9047

== ENCOUNTER 2017-02-27 08:13 | Outpatient (CLI) | payer OTHER ==
[~2017-02-27] VITALS: Ht 162.6 cm; Wt 76.5 kg
[2017-02-27] VITALS (14 sets, daily range): BP systolic 90–110; BP diastolic 53–66; PULSE 66–94; RESP 13–24; TEMP 96.4–97.4; O2SAT 96–100; Ht 162.6 cm; Wt 76.5 kg
--- NOTE | 2017-02-27 08:20 | NUR ---
ADMIT PATIENT ADMITTED TO ROOM 107 AT THIS TIME. PATIENT VITALS ARE STABLE AND PATIENT IS ON ROOM AIR. PATIENT AMBULATED TO ROOM WITH AT SIDE. WILL CONTINUE TO MONITOR.
[2017-02-27] MEDS: ALBUMIN HUMAN 25% 50 ML IV SCH ×4 (09:08→12:12)
--- NOTE | 2017-02-27 09:45 | NUR ---
CM BERYLE SCORE IS 8. Addendum: 02/27/17 at 0945 by ANGIE NICK SW Amended: Links added.
--- NOTE | 2017-02-27 10:18 | NUR ---
Off Unit Pt off unit at this time to procedure via wc accompanied by [facility] staff.
--- NOTE | 2017-02-27 11:47 | NUR ---
BACK TO UNIT PATIENT IS BACK TO UNIT AT THIS TIME. PATIENT TRNASFERED SELF FROM WHEELCHAIR TO BED. VITAL SIGNS ARE STABLE. AT BEDSIDE. WILL CONTINUE TO MONITOR.
[2017-02-27] MEDS ORDERED: ALBUMIN HUMAN 25% 12.5gm 50ml IV ONE (12:00)
[2017-02-27] MEDS ORDERED: ACETAMINOPHEN 325 MG TABLET PO PRN (12:00)
--- NOTE | 2017-02-27 13:20 | NUR ---
DISCHARGE PATIENT IS ALERT AND ORIENTED X3. PATIENT VITALS ARE STABLE AND PATIENT IS ON ROOM AIR. PATIENT DENIES CP, NAUSEA, AND SOA. PATIENT DISCHARGE INSTRUCTIONS INCLUDE: SIGNS AND SYMPTOMS OF INFECTION AT PUNCTURE SITE, CONTINUED MEDICATIONS, REASONS TO CALL DOCTOR AND OR SEEK IMMEDIATE CARE, DI FOR US GUIDED PARACENTESIS, ACTIVITY, DIET, AND BATHING. PERSONAL BELONGINGS RETURNED AND ID BAND REMOVED. PATIENT LEFT VIA AMBULATION THROUGH ER ENTRANCE WITH THIS NURSE. PATIENT WAS TRANSPORTED HOME FOR SELF CARE BY .
--- NOTE | 2017-02-27 14:06 | NUR ---
CM THIS WORKER SPOKE WITH PT, AND SPOUSE WAS PRESENT WITH PT'S PERMISSION. THEY SAID THEY LIVE IN [place], AND PT'S DC PLAN IS TO RETURN HOME. REVIEWED THE NEED FOR HOME HEALTH, AND PT DECLINED NEEDING THIS. REVIEWED DME; PT STATED SHE DOES NOT USE ANY AND DOES NOT NEED ANY. PT HAD NO QUESTIONS/CONCERNS FOR THIS WORKER. Addendum: 02/27/17 at 1409 by ANGIE MORA Amended: Links added.
--- NOTE | 2017-02-27 14:10 | DI ---
Indication:ITS.REASON ascites Procedure:US GUIDE PARACENTESIS, SUBSEQ PARACENTESIS: The procedure including the benefits, risks, and alternatives were explained in detail to the patient. All of her questions were answered. She stated that they understood and wished to proceed. Informed consent was obtained. A preprocedural timeout was performed to confirm the correct patient and procedure. Using sterile technique, local xylocaine anesthesia, and sonographic guidance throughout, a paracentesis is done from a right anterolateral approach. 7.1 L of serosanguineous fluid was taken off without complication. Following this, the patient was taken back to her recovery room to finish her albumin infusion. Impression: Successful paracentesis performed with 7.1 L of fluid removed. Abdias Duncan RPA/CATARINA performed this under my personal supervision. .
== END 2017-02-27 13:20 | disposition home or self-care (01) ==
LOC: IMA.BED 08:13 → SRG 08:13 → IMA.BED 13:20
PROVIDERS: ATTEND Radiology Diagnostic Radiology
DX: K74.60 Unspecified cirrhosis of liver (principal)
CPT/HCPCS: 49083; P9047